=== PATIENT | male | born 1985 | race Caucasian/White ===

== ENCOUNTER 2016-12-24 17:34 | Inpatient (IN) | payer OTHER ==
[~2016-12-24] VITALS: Ht 180.3 cm; Wt 86.2 kg
[2016-12-24 23:20] VITALS: BP 120/62
--- NOTE | 2016-12-24 23:20 | NUR ---
Pre-Assessment Patient is a 31 year old male, presenting to [facility] for his use for Heroin, Xanax, and ETOH Dependence. Patient is alert and oriented x3. Breathing even and non labored. patient notably intoxicated as evidence by delayed slurred speech. Per intake department patient is noted with emesis x2. Patient Reports usage as: Heroin since the age of 23, 2GM IV, Daily with last use at 2200 Xanax, since the age of 18, 2mg PO Daily, with last use at 2200 Methamphetamines, within this last year, 0.5GM IV, last dose 2200 Whiskey/Beer, since the age of 8, 5-6 beers of 7 Shots, last Drink 2200 Vital signs rendered and noted as 120/62, 98%, 83, 16, 98.6, 0/10. Left hand Swollen due an IV injection and multiple possible abscesses to bilateral forearms. Patient noted with an episode of emesis and patient reports "I think I just used to much tonight thinking this would be the last time I used." Patient verbalizes No known allergies, wishes to be full code, and follows a regular Diet. Will continue admission assessment on unit.
[2016-12-25] MEDS ORDERED: ONDANSETRON 4 MG/2 ML VIAL IV PRN (01:00)
--- NOTE | 2016-12-25 01:05 | NUR ---
MD Communication/PRN Medication Administration Patient noted with episodes of emesis upon admission. Relayed to MD with PRN Zofran IM. Medication administered. Will continue to monitor.
[2016-12-25] MEDS ORDERED: ONDANSETRON 4 MG/2 ML VIAL ONE (01:06)
[2016-12-25 01:30] VITALS: BP 114/60
[2016-12-25] MEDS ORDERED: BUPRENORPHINE HCL 2 MG TAB.SUBL SL PRN (01:30)
[2016-12-25] MEDS ORDERED: MAGNESIUM HYDROXIDE 30 ML LIQUID UDC PO PRN (01:30)
[2016-12-25] MEDS ORDERED: LOPERAMIDE HCL 2 MG CAPSULE PO PRN ×2 (01:30)
[2016-12-25] MEDS ORDERED: ACETAMINOPHEN 325 MG TABLET PO PRN (01:30)
[2016-12-25] MEDS ORDERED: HYDROXYZINE PAMOATE 25 MG CAPSULE PO PRN ×2 (01:30→17:00)
[2016-12-25] MEDS ORDERED: MIRALAX 17 GM POWD.PACK PO PRN (01:30)
[2016-12-25] MEDS ORDERED: IBUPROFEN 400 MG TABLET PO PRN (01:30)
[2016-12-25] MEDS ORDERED: ONDANSETRON ODT 4 MG TAB.RAPDIS SL PRN (01:30)
[2016-12-25] MEDS ORDERED: DICYCLOMINE HCL 20 MG TABLET PO PRN (01:30)
[2016-12-25] MEDS ORDERED: LORAZEPAM 1 MG TABLET PO PRN ×2 (01:30)
[2016-12-25] MEDS ORDERED: CLONIDINE HCL 0.1 MG TABLET PO PRN (01:30)
[2016-12-25] MEDS ORDERED: LORAZEPAM 2 MG/1 ML VIAL IM PRN (01:30)
[2016-12-25] MEDS ORDERED: THIAMINE HCL 200 MG/2 ML VIAL IM ONE (01:30)
[2016-12-25] MEDS ORDERED: PROMETHAZINE HCL 25 MG/1 ML VIAL IM PRN (01:30)
[2016-12-25] MEDS ORDERED: MAG HYDROX/AL HYDROX/SIMETH 30 ML LIQUID UDC PO PRN (01:30)
--- NOTE | 2016-12-25 01:30 | NUR ---
Admission Patient is a 31-year-old male, arriving from [facility], to receive treatment for his reported Opiate, Benzo, and ETOH Dependence, admitted under the care of Dr. Bhargav New. Patient was escorted on to unit to his room by male PULPING MACHINE OPERATOR, where body check was rendered. Skin check was rendered by primary nurse and skin noted intact, but patient was noted with abcesses to bilateral forearm. Patient was able to provide Admission Urine Drug Screen upon arrival on the unit. He is alert, oriented, ambulatory with no assistance needed. Breathing even and non labored. Patient is polite, calm and cooperative with admission process. Vital Signs rendered and noted as 114/60, 76, 18, 100%, 98.6, 0/10. Patients height noted as 5'11 and weight noted as 190lbs. Patient verbalized No known allergies, following a Regular diet, wishes to be full code. He denies suicidal ideation. Patient verbalizes history of a seizure due to benzo withdrawal in 2014. Patient reports he was taken to urgent care but cannot recall receiving care. Bowel sounds active in all quadrants with LBM verbalized 12/21/16. Patient reports past medical history of seizures (2014), Hep C= (2014), Anxiety (2010), and Depression (2010). Patient was noted with home medications in luggage as Aspirin 325mg, Eye Drops, and a container with large green tabs. Patient verbalizes chief complaint as ""Im here to detox." Patient explains his use as: 1. Since the age of 23, Heroin 1GM IV, Daily with last use at 12/24/16 at 2200 using 1GM IV 2. Since the age of 18, Xanax, 4mg PO Daily, with last use at 12/24/16 at 2200 using 5MG 3. Methamphetamines, for the past year, 0.5GM IV, last dose 12/24/16 at 2200 0.5MG 4. Whiskey/Beer, since the age of 8,but because a daily use at the age of 14, 5-6 beers of 7 Shots, last Drink 12/24/16 at 2200 Patient reports his signs and symptoms of withdrawal as "Body aches, nausea, vomiting, anxiety, chills, sweats, tremors." Patient is currently living in [place] with a friend but is unemployed. Patient reports of admission to 15 treatment facilities with the last two noted as [facility] for 7 days In [facility]- October 2016 and [facility] for 7 days in [place]. Patient reports of attempting to detox himself at home with 2 weeks of sobriety from November 18 2016 to December 01. Admission COWS noted as 2 and CIWA noted as 6. All information relayed over to Dr. New and patient was placed on PRN Medications for increased signs and symptoms of withdrawal. Labs to be drawn. All needs attended to promptly. Will continue plan of care as ordered.
--- NOTE | 2016-12-25 02:10 | NUR ---
PRN Medication Reassessment Patient able to verbalize "since the medication I dont feel nausea." Patient noted to eat ice cream with no nausea verbalized. PRN Zofran noted to be effective. Will continue to monitor.
[2016-12-25 02:15] LABS: ETHANOL < 3 MG/DL (0-0)
[2016-12-25 02:19] LABS: *AMPHETAMINE, URINE POSITIVE (NEGATIVE); *BARBITURATE, URINE NEGATIVE (NEGATIVE); *CANNABINOID, URINE POSITIVE (NEGATIVE); *COCCAINE, URINE NEGATIVE (NEGATIVE); *OPIATE, URINE POSITIVE (NEGATIVE); *PHENCYCLIDINE SCREEN,URINE NEGATIVE (NEGATIVE)
[2016-12-25 02:39] LABS: HIV-1 p24 ANTIGEN NON REACTIVE (NONREACTIVE); HIV-1/2 ANTIBODY NON REACTIVE (NONREACTIVE)
[2016-12-25 02:50] LABS: ALANINE AMINOTRANSFERASE 57 U/L (16-63); ALKALINE PHOSPHATASE 71 U/L (50-136); AMYLASE 39 U/L (25-115); ASPARTATE AMINOTRANSFERASE 31 U/L (15-37); BILIRUBIN,TOTAL 0.4 mg/dL (0.2-1.0); CALCIUM 9.2 mg/dL (8.5-10.1); CHLORIDE 104 mmol/L (98-107); GFR 88 mL/min (>60); GLUCOSE 90 mg/dL (74-106); LIPASE 100 U/L (73-393); MAGNESIUM 2.2 mg/dL (1.8-2.4); POTASSIUM 4.3 mmol/L (3.5-5.1); SODIUM SERUM 144 mmol/L (136-145); TOTAL PROTEIN, SERUM 7.6 g/dL (6.4-8.2); UREA NITROGEN, BLOOD 17 mg/dL (7-18)
[2016-12-25 03:00] LABS: THYROID STIMULATING HORMONE 2.502 mIU/mL (0.358-3.740)
[2016-12-25 03:08] LABS: CARBON DIOXIDE 33 mmol/L (21-32)
[2016-12-25 04:17] LABS: BASOPHILS % (AUTO) 0.4 % (0.0-2.0); EOSINOPHILS # (AUTO) 0.7 K/uL (0.0-0.7); EOSINOPHILS % (AUTO) 6.5 % (0.0-7.0); HEMATOCRIT 38.2 % (40-50); HEMOGLOBIN 13.3 G/DL (14.0-18.0); LYMPHOCYTES # (AUTO) 3.7 K/uL (20.0-40.0); LYMPHOCYTES % (AUTO) 33.7 % (20.5-51.5); MEAN CORPUSCULAR HEMOGLOBIN 30.7 UUG (27.0-31.0); MEAN CORPUSCULAR HGB CONC 35 g/dL (32.0-37.0); MEAN CORPUSCULAR VOLUME 88.3 FL (82.0-92.0); MONOCYTES # (AUTO) 0.8 K/uL (2.0-10.0); MONOCYTES % (AUTO) 7.1 % (0.0-11.0); NEUTROPHILS # (AUTO) 5.8 K/uL (1.8-8.9); NEUTROPHILS % (AUTO) 52.3 % (38.5-71.5); PLATELET COUNT (AUTO) 322 K/UL (150-450); RED BLOOD CELL COUNT(AUTO) 4.33 MIL/UL (4.7-6.1)
[2016-12-25 04:45] VITALS: BP 96/69
--- NOTE | 2016-12-25 07:07 | NUR ---
End of Shift Patient is in bed sleeping. Breathing even and non labored. No signs of pain or discomfort noted. Patient is a 31 year old male admitted 0123 12/25/16 for Opiate, Benzo, and ETOH Dependence, under the care of Dr. New. Patient placed on PRN medications with MD to reassess. Patient verbalizes no known allergies, full code, regular diet, fall and seizure precautions. Skin noted with abscess to bilateral forearms. Past medical history noted as Anxiety, Depression, Hep C+, and history of Seizures. Admission COWS noted as 2 and CIWA noted as 6. PRN Zofran given for episodes of emesis with medication noted to be effective. All needs attended to promptly. will endorse to continue plan of care as ordered.
[2016-12-25] MEDS ORDERED: ONDANSETRON 4 MG/2 ML VIAL IM PRN (07:15)
--- NOTE | 2016-12-25 07:30 | NUR ---
Start of shift note; Received report from night nurse. Patient is a 31 year old male admitted 12/24/16 for Opiate/benzo/meth and ETOH dependence. Patient to be evaluated by MD today during rounds. Patient is currently resting with eyes closed, respiration even and unlabored. Patient reported history of anxiety, depression, seizure history d/t Benzo withdrawals last episode was in 2014. NKA, full code status, regular diet. Patient is on fall and seizure precaution. Bed in lowest position, call light within reach. Will continue to monitor patient.
[2016-12-25 08:00] VITALS: BP 125/87
[2016-12-25] MEDS ORDERED: TUBERCULIN,PURIF.PROT.DERIV. 5 TU/0.1 ML TEST ID ONE (09:00)
[2016-12-25] MEDS: MULTIVITAMINS,THERAPEUTIC TABLET PO SCH (09:32)
[2016-12-25] MEDS: THIAMINE HCL 100 MG TABLET PO SCH (09:32)
[2016-12-25] MEDS: FOLIC ACID 1 MG TABLET PO SCH (09:32)
[2016-12-25] MEDS ORDERED: ASPI-612 PO (09:51)
[2016-12-25] MEDS ORDERED: NAPH15DR EACHEYE (09:52)
[2016-12-25 12:00] VITALS: BP 104/66
[2016-12-25 16:00] VITALS: BP 112/61
[2016-12-25] MEDS ORDERED: IBUPROFEN 600 MG TABLET PO PRN (17:00)
--- NOTE | 2016-12-25 18:48 | NUR ---
End of shift note; Patient is AOX4. Patient is a 31 year old male admitted 12/24/16 for Opiate/benzo/meth and ETOH dependence. Patient was evaluated by MD and was placed on 5 day Ativan and 5 day Subutex tapers to start tomorrow. Patient reported history of anxiety, depression, seizure history d/t Benzo withdrawals last episode was in 2014. NKA, full code status, regular diet. Patient is on fall and seizure precautions. Educated patient regarding treatment plan and medication regime, verbalized understanding. All safety measures secured. Met all needs.
--- NOTE | 2016-12-25 19:14 | NUR ---
Start of shift note Received report from day shift nurse. Pt is a 31 yo male, A+Ox4, presenting to [facility] for ETOH/Benzo/Opiate dependence. Pt has NKA, is Full code status, and on Regular diet. Pt has HX of Hep C+, Anxiety, depression, and Seizure. Pt is on Fall and Seizure precautions. Pt is to start 5 day Ativan and Subutex tapers tomorrow. No s/s of distress noted at this time. Respirations even and unlabored. Will continue to monitor.
[2016-12-25 20:16] VITALS: BP 117/75
[2016-12-25] MEDS ORDERED: LORAZEPAM 1 MG TABLET PO SCH (21:00)
--- NOTE | 2016-12-25 21:15 | NUR ---
PRN Subutex PT c/o withdrawal s/s and COWS=12 and requested for PRN Subutex. Medication given and tolerated well. Will reassess within 30 mins. Will continue to monitor.
--- NOTE | 2016-12-25 21:45 | NUR ---
PRN Subutex Reassessment Medication effective. Pt shows reduction in withdrawal symptoms. No s/s of ASE/distress noted at this time. Respirations even and unlabored. Will continue to monitor.
[2016-12-26 00:12] VITALS: BP 124/74
[2016-12-26 04:17] VITALS: BP 93/50
--- NOTE | 2016-12-26 07:06 | NUR ---
End of shift note Pt is a 31 yo male, A+Ox4, presenting to [facility] for ETOH/Benzo/Opiate dependence. Pt has NKA, is Full code status, and on Regular diet. Pt has HX of Hep C+, Anxiety, depression, and Seizure. Pt is on Fall and Seizure precautions. Pt is to start 5 day Ativan and Subutex tapers today. Pt was given PRN Subutex @2114. Pt slept for a total of 8 HRS. Last COWS: 2 and Last CIWA: 2 @0400. No s/s of distress noted at this time. Respirations even and unlabored. Will endorse to day shift nurse.
--- NOTE | 2016-12-26 07:44 | NUR ---
Start of shift note; Received report from night nurse. Patient is a 31 year old male admitted 12/24/16 for Opiate/benzo/meth and ETOH dependence. Patient to start on 5 day Ativan and 5 day Subutex today. Patient is currently resting with eyes closed, respiration even and unlabored. Patient reported history of anxiety, depression, seizure history d/t Benzo withdrawals last episode was in 2014. NKA, full code status, regular diet. Patient is on fall and seizure precaution. Bed in lowest position, call light within reach. Will continue to monitor patient.
[2016-12-26 08:00] VITALS: BP 106/60
[2016-12-26] MEDS: MULTIVITAMINS,THERAPEUTIC TABLET PO SCH (09:03)
[2016-12-26] MEDS: BUPRENORPHINE HCL 2 MG TAB.SUBL SL SCH ×4 (09:03→21:21)
[2016-12-26] MEDS: THIAMINE HCL 100 MG TABLET PO SCH (09:04)
[2016-12-26] MEDS: FOLIC ACID 1 MG TABLET PO SCH (09:04)
[2016-12-26] MEDS: LORAZEPAM 1 MG TABLET PO SCH ×4 (09:04→21:18)
[2016-12-26 12:00] VITALS: BP 108/68
--- NOTE | 2016-12-26 14:56 | NUR ---
MD consult; Patient was seen and evaluated by MD Dr. Flores. MD ordered warm compress to Bilateral upper extremities QID for 20 minutes. Order implemented. Will continue to monitor patient.
[2016-12-26] MEDS: GABAPENTIN 400 MG CAPSULE PO SCH ×2 (15:31→21:18)
[2016-12-26 16:00] VITALS: BP 118/68
[2016-12-26 16:08] LABS: HCV AB >11.0 s/co ratio (0.0-0.9); HEPATITIS B CORE AB, IgM Negative (Negative); HEPATITIS B SURFACE AG Negative (Negative)
--- NOTE | 2016-12-26 18:29 | NUR ---
End of shift note; Patient is AOX4. Patient is a 31 year old male admitted 12/24/16 for Opiate/benzo/meth and ETOH dependence. Patient was evaluated by MD and was placed on 5 day Ativan and 5 day Subutex today, no adverse reactions noted. Patient reported history of anxiety, depression, seizure history d/t Benzo withdrawals last episode was in 2014. NKA, full code status, regular diet. Patient is on fall and seizure precautions. Educated patient regarding treatment plan and medication regime, verbalized understanding. Medications were effective in reducing withdrawal symptoms. All safety measures secured. Met all needs.
--- NOTE | 2016-12-26 19:30 | NUR ---
START OF SHIFT NOTE : Patient is AOX4. Patient is a 31 year old male admitted 12/24/16 for Opiate/benzo/meth and ETOH dependence. Patient was evaluated by MD and was placed on 5 day Ativan and 5 day Subutex on 12/26/2016, no adverse reactions noted. Patient reported history of anxiety, depression, seizure history d/t Benzo withdrawals last episode was in 2014. NKA, full code status, regular diet. Patient is on fall and seizure precautions. Medications were effective in reducing withdrawal symptoms. Pt remains compliant with the treatment plan. V/S remain WNL. RR=16, even and unlabored, lungs clear upon auscultation, abdomen soft and non- distended. Pt denies nausea, vomiting and diarrhea. Safety measures in place : bed on lowest position with side rails x2 up for safety, call light within reach. Will continue to monitor closely and offer help.
[2016-12-26 20:00] VITALS: BP 111/61
[2016-12-27] VITALS: BP 113/64
--- NOTE | 2016-12-27 06:48 | NUR ---
END OF SHIFT NOTE : Patient is AOX4. Patient is a 31 year old male admitted 12/24/16 for Opiate/benzo/meth and ETOH dependence. Patient was evaluated by MD and was placed on 5 day Ativan and 5 day Subutex on 12/26/2016, no adverse reactions noted. Patient reported history of anxiety, depression, seizure history d/t Benzo withdrawals last episode was in 2014. NKA, full code status, regular diet. Patient is on fall and seizure precautions. Medications were effective in reducing withdrawal symptoms. Pt remains compliant with the treatment plan. No PRNs were given during my shift. V/S remain WNL. RR=16, even and unlabored, lungs clear upon auscultation, abdomen soft and non- distended. Pt denies nausea, vomiting and diarrhea. LAST CIWA=3 ,COWS=3 at 0400 , [id number] ml, voided x 3, slept 9 hours. Safety measures in place : bed on lowest position with side rails x2 up for safety, call light within reach. Will continue to monitor closely and offer help.
--- NOTE | 2016-12-27 07:38 | NUR ---
Start of shift note; Received report from night nurse. Patient is AOX4. Patient is a 31 year old male admitted 12/24/16 for Opiate/benzo/meth and ETOH dependence. Patient was started on 5 day Ativan and 5 day Subutex yesterday, no adverse reactions noted . Patient reported history of anxiety, depression, seizure history d/t Benzo withdrawals last episode was in 2014. NKA, full code status, regular diet. Patient is on fall and seizure precaution. Bed in lowest position, call light within reach. Patient had an uneventful night. Will continue to monitor patient.
[2016-12-27 08:00] VITALS: BP 116/70
[2016-12-27 08:36] LABS: FOLIC ACID 17.4 NG/ML (8.6-58.9)
[2016-12-27 08:39] LABS: CALCIUM 9.1 mg/dL (8.5-10.1); MAGNESIUM 2.2 mg/dL (1.8-2.4); POTASSIUM 3.8 mmol/L (3.5-5.1)
[2016-12-27] MEDS: FOLIC ACID 1 MG TABLET PO SCH (09:00)
[2016-12-27] MEDS: THIAMINE HCL 100 MG TABLET PO SCH (09:05)
[2016-12-27] MEDS: BUPRENORPHINE HCL 2 MG TAB.SUBL SL SCH ×3 (09:05→21:20)
[2016-12-27] MEDS: MULTIVITAMINS,THERAPEUTIC TABLET PO SCH (09:05)
[2016-12-27] MEDS: GABAPENTIN 400 MG CAPSULE PO SCH (09:05)
[2016-12-27] MEDS: LORAZEPAM 1 MG TABLET PO SCH ×3 (09:05→21:20)
[2016-12-27 12:00] VITALS: BP 105/69
[2016-12-27] MEDS: GABAPENTIN 300 MG CAPSULE PO SCH ×2 (14:10→21:20)
[2016-12-27 16:00] VITALS: BP 118/77
[2016-12-27 20:00] VITALS: BP 109/64
--- NOTE | 2016-12-28 02:00 | NUR ---
PRN BENADRYL Pt. complains of sleeplessness . PRN BENADRYL given as ordered . Safety measures in place : bed on lowest position with side rails x2 up for safety, call light within reach. Will continue to monitor closely and offer help.
[2016-12-28] MEDS: diphenhydrAMINE 50 MG CAPSULE PO PRN ×2 (02:33→21:10)
--- NOTE | 2016-12-28 02:55 | NUR ---
REASSESSMENT ADAM Pt. is sleeping, RR=16, unlabored and even . Safety measures in place : bed on lowest position with side rails x2 up for safety, call light within reach. Will continue to monitor closely and offer help.
--- NOTE | 2016-12-28 06:47 | NUR ---
END OF SHIFT NOTE : Patient is AOX4. Patient is a 31 year old male admitted 12/24/16 for Opiate/benzo/meth and ETOH dependence. Patient was evaluated by MD and was placed on 5 day Ativan and 5 day Subutex on 12/26/2016, no adverse reactions noted. Patient reported history of anxiety, depression, seizure history d/t Benzo withdrawals last episode was in 2014. NKA, full code status, regular diet. Patient is on fall and seizure precautions. Medications were effective in reducing withdrawal symptoms. Pt remains compliant with the treatment plan. V/S remain WNL. RR=16, even and unlabored, lungs clear upon auscultation, abdomen soft and non- distended. Pt denies nausea, vomiting and diarrhea. Pt remains compliant with the treatment plan. PRN BENADRYL was given during my shift. V/S remain WNL. RR=16, even and unlabored, lungs clear upon auscultation, abdomen soft and non- distended. Pt denies nausea, vomiting and diarrhea. LAST CIWA=3 ,COWS= 3 at 0400 , [id number] ml, voided x 2, slept 6.5 hours. Safety measures in place : bed on lowest position with side rails x2 up for safety, call light within reach. Will continue to monitor closely and offer help.
--- NOTE | 2016-12-28 07:19 | NUR ---
BEGINNING OF SHIFT Patient endorsement report received from rn shift mgr nurse, all pertinent information discussed. patient with admitting Dx: opiate/bzo/etoh dependence Patient admitted on the: 12/24/2016. PMH: hep c+, anxiety, depression, history of seizure in 2014 d/t w/d of bzo. Patient placed on a 5 day Subutex taper and is currently to begin day 3 of taper. As per rn shift mgr patient slept for 6 hours, received PRN: Benadryl as per rn shift mgr medication effective. Patient with last cow score of: 3 and last ciwa score of: 3. Patient received awake, alert and oriented x4, educated patient regarding plan of care for the day and medication regimen with good verbal understanding. safety measures in place. will continue to monitor.
[2016-12-28 08:02] VITALS: BP 121/69
[2016-12-28] MEDS: LORAZEPAM 1 MG TABLET PO SCH ×4 (08:34→21:10)
[2016-12-28] MEDS: THIAMINE HCL 100 MG TABLET PO SCH (08:34)
[2016-12-28] MEDS: MULTIVITAMINS,THERAPEUTIC TABLET PO SCH (08:34)
[2016-12-28] MEDS: GABAPENTIN 300 MG CAPSULE PO SCH ×3 (08:34→21:10)
[2016-12-28] MEDS: FOLIC ACID 1 MG TABLET PO SCH (08:34)
[2016-12-28] MEDS: METHOCARBAMOL 750 MG TABLET PO PRN (08:39)
--- NOTE | 2016-12-28 08:39 | NUR ---
PRN ROBAXIN Patient c/o muscle aches 5/10, provided with non pharmacological interventions with no relief, administered Robaxin as ordered, will monitor effectiveness of medication.
[2016-12-28] MEDS ORDERED: BUPRENORPHINE HCL 2 MG TAB.SUBL SL SCH (09:00)
--- NOTE | 2016-12-28 09:39 | NUR ---
ROBAXIN REASSESSMENT patient reports medication effective, current pain level is 0/10, will continue to monitor closely.
[2016-12-28 10:20] LABS: VIT D, 25-HYDROXY 42.6 ng/mL (30.0-100.0)
[2016-12-28 13:50] VITALS: BP 106/65
[2016-12-28] MEDS: BUPRENORPHINE HCL 2 MG TAB.SUBL SL SCH ×2 (14:40→21:10)
[2016-12-28 16:30] VITALS: BP 110/62
--- NOTE | 2016-12-28 18:49 | NUR ---
END OF SHIFT Patient alert and oriented x4, vital signs were stable during shift. patient was compliant with therapeutic plan of care. Patient with admitting Dx: opiate/bzo/etoh dependence and is currently on day 3 of 5 day Subutex and 5 day Ativan taper as ordered. Medication well tolerated, no ASE noted. 0900 assessment patient presented with: heart rate of 92, c/o chills, mild bone and joint aches, tremors that can be felt but not seen, irritable, anxiety, goosebump, barely sweating and, mild agitation with cow score of: 9 and ciwa score of: 7. 1300 assessment patient presented with: heart rate of: 99, c/o chills, tremors that can be felt but not seen, irritable, anxiety, goosebump, barely sweating, mild agitation with cow score of: 8 and ciwa score of: 7. 1700 assessment patient presented with: Heart of 96, c/o chills, tremors that can be felt but not seen, irritable, anxiety and barely sweating with cow score of: 5 and ciwa score of: 6. Detox medication effective at reducing s/sx of withdrawal. during shift received PRN: Robaxin for muscle aches 5/10 medication effective one hour post administration. Patient encouraged adequate PO fluid intake as tolerated. Encouraged to attend group therapies/sessions to learn new coping skills to prevent relapse, noted attending and participating, denies any SI/HI. Safety measures in place. call light kept with in reach. all needs met and rendered. patient endorsed to chemical operations specialist nurse, all pertinent information discussed.
[2016-12-28 20:00] VITALS: BP 126/70
--- NOTE | 2016-12-28 20:00 | NUR ---
START OF SHIFT Received report from day shift nurse. Pt attended a group meeting and returned to his room after. He is a 31 yo male admitted to [facility] on 12/25 for ETOH, BZD, and Opiate dependence. He is A&O x4 and ambulatory. NKA, full code status, and on a regular diet. Pt has a PMH of Hepatitis C, anxiety, depression, and w/d related seizure. On admission he reported using heroin 1-2 grams per day, Xanax 4mg per day, and 5-6 beers and 2-3 shots per day. He started a 5 day Ativan and 5 day Subutex taper on 12/26. Pt is lying in bed and presents with chills, headache, body aches, and a lot of anxiety and a lot of agitation. Tapers due tonight. Encouraged relaxation. Fall and seizure precautions in place. Bed is down with call light in reach. Addendum: 12/30/16 at 0246 by ABE FITZPATRICK RN Incorrect date of note.
--- NOTE | 2016-12-28 21:38 | NUR ---
REASSESSMENT ADAM Pt. is able to rest quietly, ready to sleep, RR=16, unlabored and even . Safety measures in place : bed on lowest position with side rails x2 up for safety, call light within reach. Will continue to monitor closely and offer help.
--- NOTE | 2016-12-29 06:50 | NUR ---
END OF SHIFT NOTE : Patient is AOX4. Patient is a 31 year old male admitted 12/24/16 for Opiate/benzo/meth and ETOH dependence. Patient was evaluated by MD and was placed on 5 day Ativan and 5 day Subutex on 12/26/2016, no adverse reactions noted. Patient reported history of anxiety, depression, seizure history d/t Benzo withdrawals last episode was in 2014. NKA, full code status, regular diet. Patient is on fall and seizure precautions. Medications were effective in reducing withdrawal symptoms. Pt remains compliant with the treatment plan. V/S remain WNL. RR=16, even and unlabored, lungs clear upon auscultation, abdomen soft and non- distended. Pt denies nausea, vomiting and diarrhea. Pt remains compliant with the treatment plan. PRN BENADRYL was given during my shift. V/S remain WNL. RR=16, even and unlabored, lungs clear upon auscultation, abdomen soft and non- distended. Pt denies nausea, vomiting and diarrhea. LAST CIWA=2 ,COWS= 3 at 0400 , [id number] ml, voided x 3, slept 7 hours. Safety measures in place : bed on lowest position with side rails x2 up for safety, call light within reach. Will continue to monitor closely and offer help.
--- NOTE | 2016-12-29 07:15 | NUR ---
Start Of Shift Report received from retail shift supervisor nurse. Patient is AOX4. Patient is a 31 year old male admitted for Opiate/benzo/meth and ETOH dependence. Pt is full code regular diet on fall and seizure precaution denies any food or drug allergies. Pt continues his 5 day Ativan and 5 day Subutex. Patient reported history of anxiety, depression, seizure history d/t Benzo withdrawals last episode was in 2014. Pt remains compliant with the treatment plan. Pt received PRN Benadryl last night and medication was effective per retail shift supervisor nurse. Last CIWA=2 ,COWS= 3 taken at 0400 Pt slept for a total of 7 hours last night. Safety measures in place bed on lowest position with side rails x2 up for safety, call light within reach. Will continue to monitor and provide care.
[2016-12-29 08:00] VITALS: BP 125/79
--- NOTE | 2016-12-29 08:44 | NUR ---
PRN MEDICATION Pt c/o toothache rating it 5/10 requested something for relief, non-pharmacological techniques interventions provided x3 and were not effective. PRN Tylenol 650mg administered PO, educated pt about s/e of medication and when to contact nurse. all needs met, all safety measures in place, will continue to monitor.
[2016-12-29] MEDS: GABAPENTIN 300 MG CAPSULE PO SCH ×3 (08:45→20:34)
[2016-12-29] MEDS: BUPRENORPHINE HCL 2 MG TAB.SUBL SL SCH ×4 (08:45→20:34)
[2016-12-29] MEDS: LORAZEPAM 1 MG TABLET PO SCH ×3 (08:45→20:34)
[2016-12-29] MEDS: FOLIC ACID 1 MG TABLET PO SCH (08:45)
[2016-12-29] MEDS: MULTIVITAMINS,THERAPEUTIC TABLET PO SCH (08:45)
[2016-12-29] MEDS: THIAMINE HCL 100 MG TABLET PO SCH (08:45)
--- NOTE | 2016-12-29 09:00 | NUR ---
Refused medication Pt refused his scheduled Subutex 4mg in the evening. Pt educated about the importance of medication compliance and the consequences of not taking the medications, pt verbalized understanding but still refused the medication. MD contacted and notified. all needs met will continue to monitor.
--- NOTE | 2016-12-29 09:50 | NUR ---
PRN REASSESSMENT Medication effective pt reported a decrease in pain to 2/10, all needs met will continue to monitor
[2016-12-29 12:00] VITALS: BP 133/81
--- NOTE | 2016-12-29 14:49 | NUR ---
Refused medication Pt refused his scheduled Subutex 2mg and Ativan 1 mg in the evening. Pt educated about the importance of medication compliance and the consequences of not taking the medications, pt verbalized understanding but still refused the medication. MD contacted and notified. all needs met will continue to monitor.
[2016-12-29 16:00] VITALS: BP 129/83
--- NOTE | 2016-12-29 19:04 | NUR ---
End Of Shift Endorsed report to shift stacker nurse. Patient is AOX4. Patient is a 31 year old male admitted for Opiate/benzo/meth and ETOH dependence. Pt is full code regular diet on fall and seizure precaution denies any food or drug allergies. Pt continues his 5 day Ativan and 5 day Subutex. Patient reported history d/t Benzo withdrawals last episode was in 2014. Pt remains compliant with the treatment plan. Patient encouraged adequate PO fluid intake as tolerated. Upon assessment patient presented with mild anxiety, and barely sweating with his last COWS score was a 3 and his CIWA was a 3. @1600. Detox medication effective at reducing withdrawal symptoms. Patient encouraged to attend group therapies/sessions to learn new coping skills to recent relapse, patient denies SI/HI. Pt ate all of his meals his total fluid intake was 3755mlwith 5 void and 1 bowel movement Pt received PRN Tylenol for toothache, medication was effective. Pt refused his scheduled Subutex at 0900 and he refused his scheduled Ativan and Subutex at 1500. Safety measures in place. Call light kept within reach. Patient endorsed to shift stacker nurse, all pertinent information discussed.
[2016-12-29 20:00] VITALS: BP 108/72
--- NOTE | 2016-12-29 20:00 | NUR ---
START OF SHIFT Received report from day shift nurse. Pt attended a group meeting and returned to his room after. He is a 31 yo male admitted to [facility] on 12/25 for ETOH, BZD, and Opiate dependence. He is A&O x4 and ambulatory. NKA, full code status, and on a regular diet. Pt has a PMH of Hepatitis C, anxiety, depression, and w/d related seizure. On admission he reported using heroin 1-2 grams per day, Xanax 4mg per day, and 5-6 beers and 2-3 shots per day. He started a 5 day Ativan and 5 day Subutex taper on 12/26. Pt is lying in bed and presents with chills, headache, body aches, and a lot of anxiety and a lot of agitation. Tapers due tonight. Encouraged relaxation. Fall and seizure precautions in place. Bed is down with call light in reach.
--- NOTE | 2016-12-29 20:05 | NUR ---
START OF SHIFT Received report from day shift nurse. Pt attended a group meeting and returned to his room after. He is a 31 yo male admitted to [facility] on 12/25 for ETOH, BZD, and Opiate dependence. He is A&O x4 and ambulatory. NKA, full code status, and on a regular diet. Pt has a PMH of Hepatitis C, anxiety, depression, and w/d related seizure. On admission he reported using heroin 1-2 grams per day, Xanax 4mg per day, and 5-6 beers and 2-3 shots per day. Pt was started on a 5 day Ativan and 5 day Subutex taper on 12/26. He reports generalized body aches, tearing eyes, and anxiety. Tapers due tonight. Fall and seizure precautions in place. Bed is down with call light in reach.
[2016-12-29] MEDS: METHOCARBAMOL 750 MG TABLET PO PRN (20:34)
--- NOTE | 2016-12-29 20:35 | NUR ---
PRN Robaxin and Motrin administration Pt c/o generalized body aches 5/10 and headache. PRN Robaxin and Motrin administered.
--- NOTE | 2016-12-29 21:35 | NUR ---
PRN Robaxin and Motrin reassessment PRN Robaxin and Motrin effective. Pt reports relief of body aches and headache.
[2016-12-29] MEDS: diphenhydrAMINE 50 MG CAPSULE PO PRN (22:37)
--- NOTE | 2016-12-29 22:38 | NUR ---
PRN Benadryl administration Pt c/o inability to sleep. PRN Benadryl administered.
--- NOTE | 2016-12-29 22:45 | NUR ---
PRE-ADMISSION Pt's pre-admission assessment performed in the intake office of [facility]. Pt is accompanied by his . He is A&O x4 and ambulatory with a steady gait. Pt does not appear intoxicated and answers all questions appropriately. He verbalizes that he has been using Subutex, Opioids, Xanax, Cocaine, Marijuana, and occasional ETOH. Pt denies food or drug allergies. Vital signs are B/P 116/78, HR 78, RR 18, O2 sat 94%, T 97.9, pain 0/10. He has a brace on the right knee related to an ongoing knee injury. Pt is able to provide UDS during the intake process. He states that his home medications are: Lisinopril, Prednisone, Sulfasalazine, Terazosin, Diclofenac, Pantoprazole, and Metformin. [facility] Addendum: 12/30/16 at 0603 by ABE FITZPATRICK RN Disregard note. Entered on incorrect client.
--- NOTE | 2016-12-29 23:38 | NUR ---
PRN Benadryl reassessment PRN Benadryl effective. Pt is lying in bed resting comfortably with eyes closed. Respirations even and unlabored. Safety measures in place.
[2016-12-30] VITALS: BP 126/76
--- NOTE | 2016-12-30 00:15 | NUR ---
ADMISSION Pt is a 47 yo male who arrived on the [facility] unit at 2300 on 12/29/16 for medically supervised detox. He is A&O x4 and ambulatory with a steady gait. He reports NKA, is full code status, and on a regular diet. Body check performed by T and skin check performed by nurse. He was oriented to the unit and his room. Vital signs in intake are: B/P 116/81, HR 78, RR 18, O2 sat 94%, T 97.9, pain 0/10. Pt is 6'0" and weight 235lb. He has a PMH of DM Type II, HTN, psoriasis, psoriatic arthritis, enlarged prostate, acid reflux, thalassemia, right knee injury with swelling, bilateral hand swelling, and anxiety. Lung sounds clear, PERRLA, brisk capillary refill, bowel sounds present. He has a small scabs on the right boogie and a bruise on the right calf. No s/s of infection. Pt wears bilateral wrist guards when sleeping to prevent swelling. History of Use 1) Subutex SL 1 mg BID for the past 1 year. Last used 1mg on 12/29/16 at 2100. He has used Subutex "off and on for 10 years". At one time he was using 32mg per day. 2) Xanax 1-2mg on 14 days per month for the past 1 year. Last used 4mg on 12/15/16. He has used Xanax "off and on for 10 years". 3) Oxycodone 60mg PO on 14 days per month for the past 1 years. Last used 30mg on 12/18/16. He has used oxycodone "off and on for 10 years". 4) ETOH anywhere from 1 beer to 4 mixed drinks 2x/month for the past 1 year. Last drank 4 margaritas on 12/22/16. He has used ETOH occasionally for the past 17 years. 5) Cocaine 1-2 grams per day for 14 days out of the month. Last used 17.5 grams over 2 weeks. He has used cocaine "off and on for 17 years". 6) Marijuana 2 hits at night. Last used 2 hits on 12/28/16. He has used marijuana occasionally for 17 years. The patient reports that he alternates between using Oxycodone and Subutex. He uses Xanax as needed to "come down off the uppers" . Symptoms when he doesn't use include "racing thoughts, cold, anxiety, diarrhea, body aches". He decided to come to treatment today because, "I"m getting to be so far gone". The patient explains that he became paranoid and believed his family was trying to hurt him. His longest period of sobriety was 18 months ago for four day. This is his first time in treatment. His primary care physician is Dr. Doug Paula in [facility]. COWS 2 and CIWA 1 on admission. UDS positive for cannabinoids. MD aware of patients admission. Pt educated regarding use of the call light and all questions answered. Fall and seizure precautions in place. Bed is down with call light in reach. Addendum: 12/30/16 at 0458 by ABE FITZPATRICK RN Disregard note. Entered on incorrect client.
--- NOTE | 2016-12-30 04:00 | NUR ---
0400 Vitals refused. 0400 COWS and CIWA deferred. Pt refused to be woken for 0400 Vital signs. Respirations even and unlabored. 0400 COWS and CIWA ordered Q4HWA. Safety measures in place.
--- NOTE | 2016-12-30 07:05 | NUR ---
END OF SHIFT Report provided to day shift nurse. Pt is lying in bed resting. He is a 31 yo male admitted to [facility] on 12/25 for ETOH, BZD, and Opiate dependence. He is A&O x4 and ambulatory. NKA, full code status, and on a regular diet. Pt has a PMH of Hepatitis C, anxiety, depression, and w/d related seizure. On admission he reported using heroin 1-2 grams per day, Xanax 4mg per day, and 5-6 beers and 2-3 shots per day. He started a 5 day Ativan and 5 day Subutex taper on 12/26. Last COWS 2 and CIWA 1. PRN Motrin, Robaxin, and Benadryl administered. He drank 890mL and slept 6 hours. Fall and seizure precautions in place. Bed is down with call light in reach.
--- NOTE | 2016-12-30 07:30 | NUR ---
START OF SHIFT NOTE: Received report from manager mission nurse. Pt is a 31 yo male admitted 12/25/16 for ETOH, BZD, and Opiate dependence. Pt is on a 5 day Subutex and 5 day Ativan taper. Tolerating well. Pt is awake, alert and oriented X4. Color good, skin warm and dry. Respirations even and unlabored. Safety precautions observed. Call light within reach. Will continue to monitor.
[2016-12-30 08:00] VITALS: BP 98/60
[2016-12-30] MEDS: GABAPENTIN 300 MG CAPSULE PO SCH ×3 (09:07→20:55)
[2016-12-30] MEDS: LORAZEPAM 1 MG TABLET PO SCH ×2 (09:07→20:55)
[2016-12-30] MEDS: THIAMINE HCL 100 MG TABLET PO SCH (09:07)
[2016-12-30] MEDS: MULTIVITAMINS,THERAPEUTIC TABLET PO SCH (09:07)
[2016-12-30] MEDS: BUPRENORPHINE HCL 2 MG TAB.SUBL SL SCH ×2 (09:07→20:56)
[2016-12-30] MEDS: FOLIC ACID 1 MG TABLET PO SCH (09:07)
--- NOTE | 2016-12-30 10:00 | NUR ---
VSS COWS 4 CIWA 4 C/O chills and anxiety
[2016-12-30 12:54] VITALS: BP 112/71
[2016-12-30 18:16] VITALS: BP 112/71
--- NOTE | 2016-12-30 18:53 | NUR ---
END OF SHIFT NOTE: Report given to assistant shift supervisor nurse . Pt is a 31 yo male admitted 12/25/16 for ETOH, BZD, and Opiate dependence. Pt is on a 5 day Subutex and 5 day Ativan taper. Tolerating well. Pt is awake, alert and oriented X4. Color good, skin warm and dry. Respirations even and unlabored. Vital signs have remained stable throughout shift. Last COWS 4 CIWA 4 @ 1700 . Safety precautions observed. Call light within reach.
[2016-12-30 20:00] VITALS: BP 94/67
--- NOTE | 2016-12-30 20:35 | NUR ---
PRN Robaxin Pt reports low back pain and generalized body aches 11/27. PRN Robaxin administered.
[2016-12-30] MEDS: METHOCARBAMOL 750 MG TABLET PO PRN (20:55)
[2016-12-30 21:12] LABS: *HCV QUANT 204060 IU/mL (.)
--- NOTE | 2016-12-30 21:35 | NUR ---
PRN Robaxin reassessment PRN Robaxin effective. Pt verbalizes that low back pain and body aches are relieved.
--- NOTE | 2016-12-31 | NUR ---
0000 Vitals refused. 0000 COWS and CIWA deferred. Pt refused to be woken for 0000 Vital signs. Respirations even and unlabored. 0000 COWS and CIWA ordered Q4HWA. Safety measures in place.
--- NOTE | 2016-12-31 04:00 | NUR ---
0400 Vitals refused. 0400 COWS and CIWA deferred. Pt refused to be woken for 0000 Vital signs. Respirations even and unlabored. 0400 COWS and CIWA ordered Q4HWA. Safety measures in place.
--- NOTE | 2016-12-31 07:20 | NUR ---
END OF SHIFT Report provided to day shift nurse. Pt is lying in bed resting. He is a 31 yo male admitted to [facility] on 12/25 for ETOH, BZD, and Opiate dependence. He is A&O x4 and ambulatory. NKA, full code status, and on a regular diet. Pt has a PMH of Hepatitis C, anxiety, depression, and w/d related seizure. On admission he reported using heroin 1-2 grams per day, Xanax 4mg per day, and 5-6 beers and 2-3 shots per day. Pt was started on a 5 day Ativan and 5 day Subutex taper on 12/26. PRN Robaxin administered. Last COWS 6 and CIWA 3. He drank 1251mL and slept for 7 hours. Fall and seizure precautions in place. Bed is down with call light in reach.
--- NOTE | 2016-12-31 07:40 | NUR ---
START OF SHIFT Rcvd endorsement from night nurse, client is in bed, he is A/O x4, he presents with depressed mood, flat affect. Client reports some mild leg cramps. He denies any N/V/D or SI/HI. Encouraged increased fluids as tolerated, to facilitating detox process. Encourage group attendance to improve coping skills. Last COWS 6/CIWA 3. PRN Robaxin for muscle pain, noted effective. He is a 31 y/[facility] male [facility] for ETOH, BZD, and Opiate withdrawal. NKA, full code status, regular diet. She reports hx of w/d related seizure. Seizure precautions in place. Side rails x 2 up/padded. Call light within reach. Will continue plan of care.
[2016-12-31 08:00] VITALS: BP 119/70
[2016-12-31] MEDS ORDERED: BUPRENORPHINE HCL 2 MG TAB.SUBL SL SCH (09:00)
[2016-12-31] MEDS: MULTIVITAMINS,THERAPEUTIC TABLET PO SCH (09:43)
[2016-12-31] MEDS: FOLIC ACID 1 MG TABLET PO SCH (09:43)
[2016-12-31] MEDS: GABAPENTIN 300 MG CAPSULE PO SCH ×3 (09:43→20:35)
[2016-12-31] MEDS: THIAMINE HCL 100 MG TABLET PO SCH (09:43)
[2016-12-31 12:00] VITALS: BP 121/74
[2016-12-31 16:55] VITALS: BP 112/67
--- NOTE | 2016-12-31 19:27 | NUR ---
END OF SHIFT Endorsed to incoming nurse, client is in bed, he is in group therapy, Adequate Po intake and output. He was compliant with group therapy. He is schedule for discharge tomorrow. He had an uneventful day. Last COWS 3/CIWA 3 @ 1600. He is a 31 y/o male admitted to [facility] on 12/25 for ETOH, BZD, and Opiate withdrawal. NKA, full code status, regular diet. She reports hx of w/d related seizure. Seizure precautions in place. Side rails x 2 up/padded. Call light within reach.
[2016-12-31 20:00] VITALS: BP 115/75
--- NOTE | 2016-12-31 20:00 | NUR ---
Start of Shift Pt is a 31 year old male admitted for Opiate/Benzo/ETOH dependence, placed on 5 day Ativan and 5 day Subutex taper, completed. Pt reported using Heroin 1-2gm/daily, Xanax 4mg/daily, Meth 0.5gm and Beer 5-6 beers/daily with 2-3 shots of whiskey. PMH: Hep C, anxiety, depression and hx of seizure in 2014 d/t Benzo withdrawal. NKA, fall/seizure precautions, regular diet and full code. Upon assessment, pt is alert/oriented x4, reports mild anxiety d/t discharge scheduled for tomorrow, skin noted to be flushed, respirations even/unlabored, denies SOB/chest pain, denies n/v/d, bowel sounds active x4, abdomen soft. Safety measures in place, call light within reach, side rails up x2, bed locked and in low position. Will continue to monitor.
[2016-12-31 22:11] LABS: *AMPHETAMINE, URINE NEGATIVE (NEGATIVE); *BARBITURATE, URINE NEGATIVE (NEGATIVE); *CANNABINOID, URINE NEGATIVE (NEGATIVE); *COCCAINE, URINE NEGATIVE (NEGATIVE); *OPIATE, URINE NEGATIVE (NEGATIVE); *PHENCYCLIDINE SCREEN,URINE NEGATIVE (NEGATIVE)
[2016-12-31] MEDS: diphenhydrAMINE 50 MG CAPSULE PO PRN (23:36)
--- NOTE | 2016-12-31 23:36 | NUR ---
PRN Administration Pt reported feeling anxiety and reported inability falling asleep, Non-pharmacological methods ineffective. Vistaril 25mg PRN and Benadryl 50mg PRN administered. Safety measures in place. Will continue to monitor.
[2017-01-01] VITALS: BP 112/64
--- NOTE | 2017-01-01 | NUR ---
Vital Signs BP 112/64, pulse 80, SpO2 98%, respirations 14, temp 98.1, no pain 0/10. COWS/CIWA deferred d/t pt sleeping, to assess while pt is awake as ordered. Safety measures in place. Will continue to monitor.
--- NOTE | 2017-01-01 00:36 | NUR ---
PRN Reassessment Upon reassessment, pt is resting, with eyes closed, no s/s of acute distress noted, respirations even/unlabored. Safety measures in place. Will continue to monitor.
--- NOTE | 2017-01-01 04:00 | NUR ---
Pt refused to be woken up for 0400 VS. COWS/COWS deferred d/t pt sleeping - to assess while pt is awake. Safety measures in place. Will continue to monitor.
--- NOTE | 2017-01-01 07:00 | NUR ---
End of Shift Pt is a 31 year old male admitted for Opiate/Benzo/ETOH dependence, placed on 5 day Ativan and 5 day Subutex taper, completed. Pt reported using Heroin 1-2gm/daily, Xanax 4mg/daily, Meth 0.5gm and Beer 5-6 beers/daily with 2-3 shots of whiskey. PMH: Hep C, anxiety, depression and hx of seizure in 2014 d/t Benzo withdrawal. NKA, fall/seizure precautions, regular diet and full code. During shift, pt presented with mild anxiety d/t discharge in AM, skin was noted with moderate sweat - scheduled medications administered, effective. COWS 2, CIWA 2. Benadryl 50mg PRN and Vistaril 25mg PRN administered for anxiety and sleep, effective. Pt slept for 6 hours, intake of 1347 ml Po and voids x2. Pt is scheduled for discharge today. No s/s of acute withdrawal noted. Safety measures in place, call light within reach, side rails up x2, bed locked and in low position. Endorsed to day shift nurse.
--- NOTE | 2017-01-01 07:30 | NUR ---
START OF SHIFT Patient is a 31/M admitted to [facility] on 12/24/2016 for Opiate, Benzo, Amphetamine, and ETOH withdrawal. History of Hep. C, anxiety, depression, and withdrawal seizures. Benadryl and Vistaril PRN were administered during previous shift and reported to be effective. Skin abscess on arms. Seen by Dr. Flores with no further ordered interventions. Patient is currently in bed resting. Orders for discharge this morning to [facility]. Will continue to monitor
[2017-01-01 08:00] VITALS: BP 110/65
[2017-01-01] MEDS: FOLIC ACID 1 MG TABLET PO SCH (08:31)
[2017-01-01] MEDS: GABAPENTIN 300 MG CAPSULE PO SCH (08:31)
[2017-01-01] MEDS: THIAMINE HCL 100 MG TABLET PO SCH (08:31)
[2017-01-01] MEDS: MULTIVITAMINS,THERAPEUTIC TABLET PO SCH (08:32)
[2017-01-01] MEDS ORDERED: Ibuprofen PO (09:02)
[2017-01-01] MEDS ORDERED: HYDR-3895 PO (09:02)
[2017-01-01] MEDS ORDERED: DIPH50CA37 PO (09:02)
[2017-01-01] MEDS ORDERED: Gabapentin PO (09:02)
[2017-01-01] MEDS ORDERED: METH-33 PO (09:02)
[2017-01-01] MEDS ORDERED: DICY20TA28 PO (09:02)
--- NOTE | 2017-01-01 09:35 | NUR ---
DISCHARGE Patient was discharged and off the unit at 0935. He was discharged to [facility] via private car ([facility]). All belongings wre accounted for and given back to patient. Home medications returned. Vital signs within normal limits. Last COWS 5 and CIWA 4. Escorted off the unit by PRINCIPAL PRODUCT MANAGER
== END 2017-01-01 09:35 | disposition other institution (70) | DRG 895 ==
LOC: SRC 23:13
PROVIDERS: ADMIT Internal Medicine; ATTEND Internal Medicine
DX: F11.23 Opioid dependence with withdrawal (principal); F15.20 Other stimulant dependence, uncomplicated; E87.3 Alkalosis; F10.220 Alcohol dependence with intoxication, uncomplicated; F10.230 Alcohol dependence with withdrawal, uncomplicated; F13.239 Sedative, hypnotic or anxiolytic dependence with withdrawal, unspecified; Y90.9 Presence of alcohol in blood, level not specified; D63.8 Anemia in other chronic diseases classified elsewhere; Z80.9 Family history of malignant neoplasm, unspecified; Z81.4 Family history of other substance abuse and dependence; F41.9 Anxiety disorder, unspecified; F17.210 Nicotine dependence, cigarettes, uncomplicated; R22.33 Localized swelling, mass and lump, upper limb, bilateral; L08.9 Local infection of the skin and subcutaneous tissue, unspecified; F32.9 Major depressive disorder, single episode, unspecified; E86.0 Dehydration; B19.20 Unspecified viral hepatitis C without hepatic coma
CPT/HCPCS: 36415; 70030-TC; 80307; 80324; 80346; 80349; 80361; 82306; 82746; 83550; 83690; 83735; 84443; 85025; 86580; 86592; 86705; 86803; 87340; 87521; 87806; G6040-TC; J2405; Q0163

== ENCOUNTER 2017-05-24 15:33 | Emergency (ER) | payer OTHER ==
[~2017-05-24] VITALS: Ht 180.3 cm; Wt 90.7 kg
[~2017-05-24 15:33] MED LIST: DICY20TA28 PO; DIPH50CA37 PO; Gabapentin PO; HYDR-3895 PO; Ibuprofen PO; METH-33 PO; NAPH15DR EACHEYE
[2017-05-24] MEDS ORDERED: GABA800T2 PO (15:49)
[2017-05-24] MEDS ORDERED: QUET100T PO (15:49)
--- NOTE | 2017-05-24 16:27 | NUR ---
PT WAS EVALUATED BY DR CONROY. PT WAS D/C TO HOME. D/C INSTRUCTIONS GIVEN TO THE PT.
[2017-05-24 16:28] VITALS: BP 139/78
== END 2017-05-24 16:29 | disposition home or self-care (01) ==
LOC: ER 15:34
DX: Z76.0 Encounter for issue of repeat prescription (principal); A60.00 Herpesviral infection of urogenital system, unspecified; Z59.0 Homelessness
CPT/HCPCS: A4663

== ENCOUNTER 2017-06-12 23:08 | Inpatient (IN) | payer OTHER ==
[~2017-06-12] VITALS: Ht 180.3 cm; Wt 86.2 kg
[~2017-06-12 23:08] MED LIST changes: -DICY20TA28 PO; -DIPH50CA37 PO; +GABA800T2 PO; -Gabapentin PO; -HYDR-3895 PO; -Ibuprofen PO; -METH-33 PO; -NAPH15DR EACHEYE; +QUET100T PO
[2017-06-12] MEDS ORDERED: LORAZEPAM 1 MG TABLET PO PRN ×2 (23:15)
[2017-06-12] MEDS ORDERED: THIAMINE HCL 200 MG/2 ML VIAL IM ONE (23:15)
[2017-06-12] MEDS ORDERED: DICYCLOMINE HCL 20 MG TABLET PO PRN (23:15)
[2017-06-12] MEDS ORDERED: LOPERAMIDE HCL 2 MG CAPSULE PO PRN ×2 (23:15)
[2017-06-12] MEDS ORDERED: IBUPROFEN 600 MG TABLET PO PRN (23:15)
[2017-06-12] MEDS ORDERED: ONDANSETRON 4 MG/2 ML VIAL IM PRN (23:15)
[2017-06-12] MEDS ORDERED: diphenhydrAMINE 50 MG CAPSULE PO PRN (23:15)
[2017-06-12] MEDS ORDERED: METHOCARBAMOL 750 MG TABLET PO PRN (23:15)
[2017-06-12] MEDS ORDERED: CLONIDINE HCL 0.1 MG TABLET PO PRN (23:15)
[2017-06-12] MEDS ORDERED: LORAZEPAM 2 MG/1 ML VIAL IM PRN (23:15)
[2017-06-12] MEDS ORDERED: MAG HYDROX/AL HYDROX/SIMETH 30 ML LIQUID UDC PO PRN (23:15)
[2017-06-12] MEDS ORDERED: ONDANSETRON ODT 4 MG TAB.RAPDIS SL PRN (23:15)
[2017-06-12] MEDS ORDERED: BUPRENORPHINE HCL 2 MG TAB.SUBL SL PRN (23:15)
[2017-06-12] MEDS ORDERED: ACETAMINOPHEN 325 MG TABLET PO PRN (23:15)
[2017-06-12] MEDS ORDERED: MIRALAX 17 GM POWD.PACK PO PRN (23:15)
--- NOTE | 2017-06-12 23:35 | NUR ---
PRE ADMISSION NOTE : Patient is a 31 year old male AOX4, presented to [facility] to detoxify from Benzodiazepines, ETOH, Opioid, Crack, Methamphetamine, and Suboxone. Patient appears anxious, nervous, tremors to touch with flushed face. Patient is cooperative, speech is clear and audible. Patient reports NKA. Patient's admitting vital signs are as follows; BP 137/74, HR 95, T: 98.3, RA SPO2 95%. Patient denies any pain at this time. Patient instructed on unit protocol of vitals Q4H and COWS/CIWA assessments. Patient verbalized understanding and agreement. Patient also instructed on policy regarding destruction of any controlled substances/prescriptions brought to facility, and handling of all medications. Patient verbalized understanding and agreement. Will complete admission assessment when patient is brought up to unit.
--- NOTE | 2017-06-12 23:40 | NUR ---
ADMISSION NOTE New patient is a 36 year old male admitted to [facility] on 06/12/2017 @ 23:40 for medically supervised withdrawal from Benzodiazepines, ETOH, Opioid, Crack, Methamphetamine, and Suboxone . Patient reports NKA, is on Full Code, is on Regular Diet, is Fall and Seizures Precautions. Patient denies a history of withdrawal-induced seizures. Past Medical History: Anxiety, Depression, Substances use disorder, Hepatitis C. Patient denies Past Surgical History. Patient reports "No PCP". Pre-assessment completed in intake. Patient provided UDS test and Blood Labs at this time as ordered. Patient is ambulatory with steady gate, stable, A&Ox4, speech is clear. Height: 71 in, Weight: 190 lbs by standing scale. VS upon admission: ; BP 137/74, HR 95, Temperature 98.3, SPO2 95%, pain level "0/10". COWS 10, CIWA 7. The patient presented with anxiety, agitation, nervousness, tremors that can be felt, diaphoresis, restless legs, and fatigue. Patient denies SI/HI. Upon initial assessment respirations unlabored and even. Patient denies SOB and chest pain. Lungs Sounds are clear bilaterally. Bowel Sounds active in all x4 quadrants. Abdomen is soft and non-tender. PERRLA, brisk capillary refill, waiter/waitress buffet equal and strong. Skin is intact, warm and dry to touch. Patient reports the following Substances Use: 1."Xanax PO " 3 tab/6 mg PO every day since 2014". 2."Alcohol PO " Patient reports "consuming Whisky 750 ml every day since 2014". Last used "Whisky 750 ml on 06/12/2017 @0000". 3.Methamphetamine "1 gram PO and via IV every day since 2014". 4.Heroin "2 grams via IV every day since 2014". 5.Suboxone "4 mg PO every day since 2014". 6.Crack "2 grams via IV /snort every day since 2014". Longest sober period was "2 years: 2014 - 2016". Patient reports "Tobacco use since 2006 every day 1 pack". Patient reports he was in Multiple Treatment History. Medications Reconciliation done. Doctor Chidi Mccarthy assessed patient. Patient oriented to his room, Nurse Call Light, and [facility] Floor. Encourage fluids as tolerated. Encourage to attend activities groups. All needs met. Safety measures on place. Call light within reach, bed in lowest position and locked, padded rails up bilaterally rails up bilaterally. Will continue to monitor closely. Addendum: 06/13/17 at 0459 by HIRAM LUCIA RN Patient reports the following Substances Use: 1."Xanax PO " 3 tab/6 mg PO every day since 2014. Last used 3 tab/6 mg PO on 06/12/2017 @0000". 2.."Alcohol PO " Patient reports "consuming Whisky 750 ml every day since 2014". Last used "Whisky 750 ml on 06/12/2017 @0000". 3. Methamphetamine "1 gram PO and via IV every day since 2014. Last used 1 gram via IV on 06/12/2017 @0000". 4. Heroin "2 grams via IV every day since 2014. Last used 2 grams via IV on 06/12/2017 @0000". 5. Suboxone "4 mg PO every day since 2014. Last used 4 mg PO on 06/12/2017 @0000". 6. Crack "2 grams via IV /snort every day since 2014. Last used 2 grams via IV on 06/12/2017 @0000".
[2017-06-12 23:54] LABS: ETHANOL < 3 MG/DL (0-0)
[2017-06-12 23:55] LABS: ALANINE AMINOTRANSFERASE 107 U/L (16-63); ALKALINE PHOSPHATASE 83 U/L (50-136); ASPARTATE AMINOTRANSFERASE 43 U/L (15-37); BILIRUBIN,TOTAL 0.6 mg/dL (0.2-1.0); CARBON DIOXIDE 29 mmol/L (21-32); CHLORIDE 102 mmol/L (98-107); CREATININE 1.1 mg/dL (0.6-1.3); GLUCOSE 111 mg/dL (74-106); MAGNESIUM 2.2 mg/dL (1.8-2.4); POTASSIUM 3.7 mmol/L (3.5-5.1); TOTAL PROTEIN, SERUM 7.9 g/dL (6.4-8.2); UREA NITROGEN, BLOOD 16 mg/dL (7-18)
[2017-06-12 23:56] LABS: *AMPHETAMINE, URINE POSITIVE (NEGATIVE); *BARBITURATE, URINE NEGATIVE (NEGATIVE); *CANNABINOID, URINE NEGATIVE (NEGATIVE); *COCCAINE, URINE POSITIVE (NEGATIVE); *OPIATE, URINE POSITIVE (NEGATIVE); *PHENCYCLIDINE SCREEN,URINE NEGATIVE (NEGATIVE)
[2017-06-13] VITALS (7 sets, daily range): BP systolic 11–137; BP diastolic 54–76
[2017-06-13 00:11] LABS: BASOPHILS # (AUTO) 0.1 K/uL (0.0-8.0); EOSINOPHILS # (AUTO) 0.4 K/uL (0.0-0.7); HEMATOCRIT 41.6 % (40-50); MONOCYTES # (AUTO) 0.8 K/UL (0.1-1.30)
[2017-06-13 00:13] LABS: BASOPHILS % (AUTO) 0.5 % (0.0-2.0); HEMOGLOBIN 14.6 G/DL (14.0-18.0); LYMPHOCYTES # (AUTO) 3.1 K/UL (0.8-4.8); LYMPHOCYTES % (AUTO) 24.2 % (20.5-51.5); MEAN CORPUSCULAR HGB CONC 35 g/dL (32.0-37.0); MEAN CORPUSCULAR VOLUME 88.5 FL (82.0-92.0); MONOCYTES % (AUTO) 6.2 % (0.0-11.0); NEUTROPHILS # (AUTO) 8.6 K/UL (1.8-8.9); NEUTROPHILS % (AUTO) 66.1 % (38.5-71.5); PLATELET COUNT (AUTO) 298 K/UL (150-450)
[2017-06-13] MEDS ORDERED: LORAZEPAM 1 MG TABLET ONE (00:22)
[2017-06-13] MEDS ORDERED: LORAZEPAM 1 MG TABLET PO ONE (00:30)
[2017-06-13] MEDS ORDERED: GABA800T2 PO (00:51)
[2017-06-13] MEDS ORDERED: VALA500T34 PO (00:51)
[2017-06-13] MEDS ORDERED: QUET100T PO (00:51)
[2017-06-13] MEDS ORDERED: OXCA150T PO (00:51)
[2017-06-13] MEDS ORDERED: BUPR1FIL SL (00:51)
--- NOTE | 2017-06-13 07:05 | NUR ---
END OF SHIFT NOTE: Patient is a 36 year old male admitted to [facility] on 06/12/2017 for medically supervised withdrawal from Benzodiazepines, ETOH, Opioid, Crack, Methamphetamine, and Suboxone . Patient reports NKA, is on Full Code, is on Regular Diet, is Fall and Seizures Precautions. Patient denies a history of withdrawal-induced seizures. Past Medical History: Anxiety, Depression, Substances use disorder, Hepatitis C. Patient denies Past Surgical History. Patient reports the following Substances Use: 1."Xanax PO " 3 tab/6 mg PO every day since 2014. Last used 3 tab/6 mg PO on 06/12/2017 @0000". 2.."Alcohol PO " Patient reports "consuming Whisky 750 ml every day since 2014". Last used "Whisky 750 ml on 06/12/2017 @0000". 3. Methamphetamine "1 gram PO and via IV every day since 2014. Last used 1 gram via IV on 06/12/2017 @0000". 4. Heroin "2 grams via IV every day since 2014. Last used 2 grams via IV on 06/12/2017 @0000". 5. Suboxone "4 mg PO every day since 2014. Last used 4 mg PO on 06/12/2017 @0000". 6. Crack "2 grams via IV /snort every day since 2014. Last used 2 grams via IV on 06/12/2017 @0000". Longest sober period was "2 years: 2014 - 2016". Patient reports Multiple Treatment History. MRSA nares collected and sent to Lab. Last COWS 6,CIWA 5 @0400. COWS/CIWA taken when patient was alert during the night. VS @0400: T: 97.9, BP: 106/62, HR:74, RR:17, RA O2Sat: 97%. Pain level: "0/10". Respirations unlabored and even. Patient denies SOB and chest pain. Skin is intact, warm and dry to touch. No Medications administrated d/t patient refused. Patient slept 6 hours, intake 796 ml, voided x1. Encouraged fluids as tolerated. Encouraged to attend group activities. All needs met. Safety measures on place. Call light within reach, bed in lowest position and locked, padded rails up bilaterally. Patient endorsed to day shift nurse.
--- NOTE | 2017-06-13 07:30 | NUR ---
START OF SHIFT Pt 31 y/o male admitted for bzo, etoh, meth, suboxone, and cocaine dependence. Pt received in room on bed with eyes closed resting, but easily arousable to name. Pt alert and oriented to name, place, and time. Perrla. Skin warm and slightly moist to touch. Respirations even and unlabored. It was reported that pt slept for 6 hours last night. Bed on lowest position with side rails x2 up for safety. Call light within reach. No distress noted at this time.
[2017-06-13] MEDS ORDERED: TUBERCULIN,PURIF.PROT.DERIV. 5 TU/0.1 ML TEST ID ONE (09:00)
[2017-06-13] MEDS: GABAPENTIN 300 MG CAPSULE PO SCH ×3 (09:47→20:54)
[2017-06-13] MEDS: MULTIVITAMINS,THERAPEUTIC TABLET PO SCH (09:48)
[2017-06-13] MEDS: FOLIC ACID 1 MG TABLET PO SCH (09:48)
[2017-06-13] MEDS: THIAMINE HCL 100 MG TABLET PO SCH (09:48)
--- NOTE | 2017-06-13 09:48 | NUR ---
PRN Pt appeared anxious and agitated. Pt with bilateral hand tremors noted. Pt with c/o nausea. Pt with cows=12. Subutex po prn per MD order given and tolerated well.
--- NOTE | 2017-06-13 09:48 | NUR ---
PRN Pt with c/o nausea. Zofran odt prn per MD order given and tolerated well.
--- NOTE | 2017-06-13 09:48 | NUR ---
PRN Pt appeared anxious and agitated. Pt with bilateral hand tremors noted. Pt with c/o nausea. ciwa=8. Ativan 1 mg po prn per MD order given and tolerated well.
--- NOTE | 2017-06-13 09:48 | NUR ---
PRN Pt with c/o generalized body aches 01/27. Robaxin po prn per MD order given and tolerated well.
--- NOTE | 2017-06-13 10:48 | NUR ---
PRN EVAL Pt with ciwa=3.
--- NOTE | 2017-06-13 10:48 | NUR ---
PRN EVAL Pt states nausea subsided.
--- NOTE | 2017-06-13 10:48 | NUR ---
PRN EVAL Pt states generalized body aches 2/10 at this time.
--- NOTE | 2017-06-13 10:48 | NUR ---
PRN EVAL Pt with cows=6.
[2017-06-13] MEDS: LORAZEPAM 1 MG TABLET PO SCH ×2 (14:14→20:54)
[2017-06-13] MEDS: BUPRENORPHINE HCL 2 MG TAB.SUBL SL SCH ×2 (14:14→20:55)
[2017-06-13] MEDS: OXCARBAZEPINE 150 MG TABLET PO SCH (17:57)
--- NOTE | 2017-06-13 18:29 | NUR ---
END OF SHIFT Pt 31 y/o male admitted for benzo, eoth, meth, suboxone, and cocaine dependence. Pt alert and oriented to name, place, and time. Perrla. Skin warm and slightly moist to touch. Respirations even and unlabored. Bilateral hand tremors noted. Pt observed mostly isolative to room throughout the day. Pt did not attend group activity this morning. Pt was seen by MD today. Pt was started on a 4 day ativan taper and 4 day subutex taper today. Pt medication compliant and tolerated well. No ASE noted. Bed on lowest position with side rails x2 up for safety. Call light within reach. No distress noted at this time.
--- NOTE | 2017-06-13 20:00 | NUR ---
Start of Shift Pt is a 31 year old male admitted for ETOH/Benzo/Opiate dependence, placed on 5 day Ativan and 5 day Subutex taper. Pt reports use of Xanax 3 tabs of 6mg/daily, Whiskey 750ml/daily, Methamphetamine 1g/daily, Heroin IV 2 g/daily, Suboxone 4mg/daily and crack 2 g/daily. PMH: Anxiety, depression and Hepatitis C. NKA, regular diet, fall/seizure precautions and full code. Upon assessment, pt presents with anxiety, reports feeling hot/cold with chills, body/joint aches, skin is noted with sweat/clammy and flushed, respirations even/unlabored, denies n/v/d, medications due. Safety measures in place, call light within reach, side rails up x2, bed locked and in low position. Will continue to monitor.
[2017-06-13] MEDS: QUETIAPINE FUMARATE 100 MG TABLET PO SCH (20:54)
[2017-06-14] VITALS: BP 118/62
[2017-06-14 04:00] VITALS: BP 127/68
--- NOTE | 2017-06-14 04:00 | NUR ---
Vital Signs/COWS/CIWA Deferred BP 127/68, pulse 92, resp 16, SpO2 98% room air, temp 97.9 CIWA/COWS deferred due to pt sleeping, to assess while pt is wake as ordered Safety measures in place, will continue to monitor.
--- NOTE | 2017-06-14 07:00 | NUR ---
End of Shift Pt is a 31 year old male admitted for ETOH/Benzo/Opiate dependence, placed on 5 day Ativan and 5 day Subutex taper. Pt reports use of Xanax 3 tabs of 6mg/daily, Whiskey 750ml/daily, Methamphetamine 1g/daily, Heroin IV 2 g/daily, Suboxone 4mg/daily and crack 2 g/daily. PMH: Anxiety, depression and Hepatitis C. NKA, regular diet, fall/seizure precautions and full code. During shift, pt presented with anxiety, reports feeling hot/cold with chills, body/joint aches, skin is noted with sweat/clammy and flushed scheduled taper medications administered, COWS 7 and CIWA 6. No PRN medications administered during shift. Pt slept for 7 hours, intake of 855 ml PO, voids x3 and stool x0. Safety measures in place, call light within reach, side rails up x2, bed locked and in low position. Endorsed to day shift nurse.
[2017-06-14 07:07] LABS: HEPATITIS B SURFACE AG Negative (Negative)
--- NOTE | 2017-06-14 07:30 | NUR ---
START OF SHIFT Pt 31 y/o male admitted for bzo, etoh, meth, suboxone, and cocaine dependence. Pt received in room on bed with eyes closed resting, but easily arousable to name. Pt alert and oriented to name, place, and time. Perrla. Skin warm and slightly moist to touch. Bilateral hand tremors noted. Respirations even and unlabored. Pt appears restless in bed. It was reported that pt slept for 7 hours last night. Bed on lowest position with side rails x2 up for safety. Call light within reach. No distress noted at this time.
[2017-06-14 08:00] VITALS: BP 87/48
[2017-06-14] MEDS ORDERED: BUPRENORPHINE HCL 2 MG TAB.SUBL SL SCH (09:00)
[2017-06-14] MEDS: LORAZEPAM 1 MG TABLET PO SCH ×3 (10:13→20:50)
[2017-06-14] MEDS: THIAMINE HCL 100 MG TABLET PO SCH (10:14)
[2017-06-14] MEDS: FOLIC ACID 1 MG TABLET PO SCH (10:14)
[2017-06-14] MEDS: GABAPENTIN 300 MG CAPSULE PO SCH ×3 (10:14→20:50)
[2017-06-14] MEDS: MULTIVITAMINS,THERAPEUTIC TABLET PO SCH (10:14)
[2017-06-14] MEDS: OXCARBAZEPINE 150 MG TABLET PO SCH ×2 (10:14→16:58)
[2017-06-14 12:00] VITALS: BP 119/62
[2017-06-14] MEDS: BUPRENORPHINE HCL 2 MG TAB.SUBL SL SCH ×2 (14:52→20:51)
[2017-06-14 16:00] VITALS: BP 113/63
--- NOTE | 2017-06-14 18:00 | NUR ---
END OF SHIFT Pt 31 y/o male admitted for benzo, eoth, meth, suboxone, and cocaine dependence. Pt alert and oriented to name, place, and time. Perrla. Skin warm and moist to touch. Respirations even and unlabored. Bilateral hand tremors noted. Pt with periods of anxiety this morning. Pt observed mostly in dining room throughout the day. Pt did not attend group activity this morning. Pt was seen by MD today. Pt medication compliant and tolerated well. No ASE noted. Bed on lowest position with side rails x2 up for safety. Call light within reach. No distress noted at this time.
[2017-06-14 20:00] VITALS: BP 130/76
--- NOTE | 2017-06-14 20:00 | NUR ---
Start of Shift Notes Received 31 y/o male admitted 06/12/2017 for bzo, etoh, meth, suboxone, and cocaine dependence. A&Ox4. Px has NKA, on regular diet and on Full Code. During the rounds, px appears anxious, complained of body aches /10. Respirations are even and unlabored. COWS 5, CIWA 6. Bed on lowest position with side rails x2 up for safety. Call light within reach. We'll continue to monitor.
[2017-06-14] MEDS: QUETIAPINE FUMARATE 100 MG TABLET PO SCH (20:50)
[2017-06-15] VITALS: BP 109/75
--- NOTE | 2017-06-15 | NUR ---
COWS and CIWA deferred COWS and CIWA deferred due to the px is sleeping, to assess if the px is awake per doctor's order. Respirations are even and unlabored. We'll continue to monitor.
[2017-06-15 04:00] VITALS: BP 110/74
--- NOTE | 2017-06-15 07:21 | NUR ---
End of Shift Notes 31 y/o male admitted 06/12/2017 for bzo, etoh, meth, suboxone, and cocaine dependence. A&Ox4. Px has NKA, on regular diet and on Full Code. During the shift, px appears anxious, complained of body aches 01/27. Respirations are even and unlabored. Oral intake of 800 ml, voided 2x, no BM. Slept for 6 hrs. Bed on lowest position with side rails x2 up for safety. Call light within reach. We'll continue to monitor.
--- NOTE | 2017-06-15 07:30 | NUR ---
START OF SHIFT Pt 31 y/o male admitted for bzo, etoh, meth, suboxone, and cocaine dependence. Pt received in room on bed with eyes closed resting, but easily arousable to name. Pt alert and oriented to name, place, and time. Perrla. Skin warm and moist to touch. Bilateral hand tremors noted. Respirations even and unlabored. It was reported that pt slept for 6 hours last night. Bed on lowest position with side rails x2 up for safety. Call light within reach. No distress noted at this time.
[2017-06-15 08:05] VITALS: BP 94/67
[2017-06-15] MEDS: LORAZEPAM 1 MG TABLET PO SCH ×3 (08:37→21:51)
[2017-06-15] MEDS: BUPRENORPHINE HCL 2 MG TAB.SUBL SL SCH ×3 (08:37→21:52)
[2017-06-15] MEDS: FOLIC ACID 1 MG TABLET PO SCH (08:37)
[2017-06-15] MEDS: GABAPENTIN 300 MG CAPSULE PO SCH ×3 (08:37→21:51)
[2017-06-15] MEDS: THIAMINE HCL 100 MG TABLET PO SCH (08:37)
[2017-06-15] MEDS: MULTIVITAMINS,THERAPEUTIC TABLET PO SCH (08:37)
[2017-06-15] MEDS: OXCARBAZEPINE 150 MG TABLET PO SCH ×2 (08:37→16:31)
[2017-06-15 12:29] VITALS: BP 127/79
--- NOTE | 2017-06-15 16:51 | NUR ---
Client was prompted to attend daily group sessions at 11ama and 3:30pm Client stated that he would try to attend.
[2017-06-15 17:00] VITALS: BP 149/82
--- NOTE | 2017-06-15 17:30 | NUR ---
PRN Pt with ga=226/84. Catapres po prn per MD order given and tolerated well.
--- NOTE | 2017-06-15 18:30 | NUR ---
PRN EVAL Pt with tj=738/64.
[2017-06-15 20:00] VITALS: BP 115/64
--- NOTE | 2017-06-15 20:00 | NUR ---
Start of Shift Notes Received 31 y/o male admitted 06/12/2017 for bzo, etoh, meth, suboxone, and cocaine dependence. A&Ox4. Px has NKA, on regular diet and on Full Code. During the rounds, px is sleeping. Respirations are even and unlabored. Bed on lowest position with side rails x2 up for safety. Call light within reach. We'll continue to monitor.
[2017-06-15] MEDS: QUETIAPINE FUMARATE 100 MG TABLET PO SCH (21:52)
[2017-06-15] MEDS: CLONIDINE HCL 0.1 MG TABLET PO SCH (21:52)
[2017-06-16] VITALS: BP 104/61
[2017-06-16 04:00] VITALS: BP 100/60
--- NOTE | 2017-06-16 07:17 | NUR ---
End of Shift Notes 31 y/o male admitted 06/12/2017 for bzo, etoh, meth, suboxone, and cocaine dependence. A&Ox4. Px has NKA, on regular diet and on Full Code. During the shift, no complaints made. Oral intake of 1,300 ml, voided 3x, no BM. Slept for 7.5 hrs. Last COWS 4, CIWA 4. Respirations are even and unlabored. Bed on lowest position with side rails x2 up for safety. Call light within reach. We'll continue to monitor.
[2017-06-16 08:00] VITALS: BP 90/60
--- NOTE | 2017-06-16 08:05 | NUR ---
START OF SHIFT: RECEIVED PT A/O X 4. HE PRESENTS WITH IRRITABLE MOOD AND CONGRUENT AFFECT. PT REPORTS MILD BODY ACHES,CHILLS SWEATS AND ANXIETY. COWS 4 CIWA 2 ATIVAN/ SUBUTEX TAPER IN PROGRESS TO MANAGE S/S OF W/D. COWS 4 CIWA 2. HE STATES HE WILL ATTEND GROUPS TODAY. WILL CONTINUE TO MONITOR AND MANAGE S/S OF W/D.
[2017-06-16] MEDS ORDERED: BUPRENORPHINE HCL 2 MG TAB.SUBL SL SCH (09:00)
[2017-06-16] MEDS ORDERED: LORAZEPAM 1 MG TABLET PO SCH (09:00)
[2017-06-16] MEDS: CLONIDINE HCL 0.1 MG TABLET PO SCH ×2 (09:00→20:55)
[2017-06-16] MEDS: THIAMINE HCL 100 MG TABLET PO SCH (09:26)
[2017-06-16] MEDS: FOLIC ACID 1 MG TABLET PO SCH (09:26)
[2017-06-16] MEDS: GABAPENTIN 300 MG CAPSULE PO SCH ×3 (09:26→20:54)
[2017-06-16] MEDS: MULTIVITAMINS,THERAPEUTIC TABLET PO SCH (09:26)
[2017-06-16] MEDS: OXCARBAZEPINE 150 MG TABLET PO SCH ×2 (09:26→16:41)
[2017-06-16 12:00] VITALS: BP 134/84
--- NOTE | 2017-06-16 12:53 | NUR ---
Therapist prompted client to attend group today, client agreed to attend.
[2017-06-16] MEDS ORDERED: METH-406 PO (13:43)
[2017-06-16] MEDS ORDERED: GABA-534 PO (13:43)
[2017-06-16] MEDS ORDERED: ONDA4TAB11 SL (13:43)
[2017-06-16 16:00] VITALS: BP 127/76
--- NOTE | 2017-06-16 18:54 | NUR ---
END OF SHIFT: PT CONTINUES ON ATIVAN /SUBUTEX TAPER. LAST COWS 3 CIWA 2. HE ATTENDED GROUPS AND INTERACTED WITH PEERS. NO PRNS GIVEN. PT STATES THE DETOX MEDS ARE EFFECTIVE. WILL PASS SHIFT REPORT TO ONCOMING NIGHT NURSE.
--- NOTE | 2017-06-16 19:30 | NUR ---
Start of Shift Patient is a 31 year old male admitted to [facility] on 06-12-17 for Benzo, Etoh, and opiate detox. Patient has completed a five day Subutex and Ativan taper. Last CIWA 2 and COWS 3 at 1600. Patient is on fall and seizure precaution. Tolerating diet and fluids. PMH of Hepatitis C, Anxiety and Depression. Mood currently stable. Denies any complaints. Safety measures in place. 2 side rails up, bed locked and in lowest position, call light within reach Report received from AM nurse.
[2017-06-16 20:00] VITALS: BP 111/61
[2017-06-16] MEDS: QUETIAPINE FUMARATE 100 MG TABLET PO SCH (20:54)
--- NOTE | 2017-06-16 21:00 | NUR ---
Medication Held Clonidine 0.1mg PO held at 2100 for < BP below parameters. BP 111/61.
--- NOTE | 2017-06-17 | NUR ---
Vital signs refused. CIWA/COWS deferred. Patient refused vital signs at 0000. CIWA/COWS deferred for sleep.
--- NOTE | 2017-06-17 04:00 | NUR ---
COWS/CIWA deferred. 0400 COWS/CIWA deferred for sleep.
[2017-06-17 04:19] VITALS: BP 114/68
--- NOTE | 2017-06-17 06:47 | NUR ---
End of shift Patient is a 31 year old male admitted to [facility] on 06-12-17 for Benzo, ETOH, and opiate detox. Patient has completed a five day Subutex and Ativan taper. Patient is on fall and seizure precaution. PMH of Hepatitis C, Anxiety and Depression. Denies any SI or HI. Mood has remained stable. Denies any complaints. Vital signs at 2000 BP 111/61, P 82, R 16, SPO2 97% on RA, T 98.1. COWS 1 CIWA 1. VS at 0400 BP 114/68, P 80, R 16, SPO2 98% on RA, T 98.0. Patient slept a total of 8 hours. Intake 1000 ml. Output 3 voids . Safety measures in place. 2 side rails up, bed locked and in lowest position, call light within reach Report given to AM nurse.
--- NOTE | 2017-06-17 07:32 | NUR ---
START OF SHIFT NOTE Received report from night nurse, 31 year old male admitted for BENZO/ETOH/OPIOID dependence. Patient has a PMH Anxiety, Depression,Hep-C. Patient completed his Ativan/Subutex taper tolerated well. Per endorsement patient did not receive any PRN medications and his Clonidine was held due to low blood pressure, Patient slept for 8 hours, Last CIWA was-1/COWS was-1. Patient scheduled for discharge today at 0900. Patient received awake, alert and oriented x4, Educated patient regarding plan of care for the day and medication regimen with good verbal understanding. Safety measures in place. call light with in reach, will continue to monitor.
[2017-06-17 08:00] VITALS: BP 110/62
[2017-06-17 08:11] VITALS: BP 110/62
[2017-06-17] MEDS: FOLIC ACID 1 MG TABLET PO SCH (08:11)
[2017-06-17] MEDS: GABAPENTIN 300 MG CAPSULE PO SCH (08:11)
[2017-06-17] MEDS: OXCARBAZEPINE 150 MG TABLET PO SCH (08:11)
[2017-06-17] MEDS: THIAMINE HCL 100 MG TABLET PO SCH (08:11)
[2017-06-17] MEDS: CLONIDINE HCL 0.1 MG TABLET PO SCH (08:11)
[2017-06-17] MEDS: MULTIVITAMINS,THERAPEUTIC TABLET PO SCH (08:11)
--- NOTE | 2017-06-17 09:33 | NUR ---
DISCHARGE NOTE Patient is in stable condition. Vital signs WNL,Patient is alert oriented x4, Skin intact warm and dry to touch. Patient denies any SI/HI ideations. Patient completed his Subutex and Ativan taper tolerated well. All discharge paper work done signed and dated. Patient educated about discharge instructions, Pt verbalized understanding. Patient 's last COWS score was 1 and CIWA was-1. Patient discharged from [facility] on 06/17/17 at 0933. Patient left the building with all of his belongings and prescriptions. has been contracted and notified of Pt's discharge.
== END 2017-06-17 09:33 | disposition home or self-care (01) | DRG 895 ==
LOC: SRC 23:08
PROVIDERS: ADMIT Internal Medicine; ATTEND Internal Medicine
PROC: HZ2ZZZZ Detoxification Services for Substance Abuse Treatment (ICD-10-PCS; principal; 2017-06-12)
PROC: HZ41ZZZ Group Counseling for Substance Abuse Treatment, Behavioral (ICD-10-PCS; 2017-06-14)
PROC: HZ31ZZZ Individual Counseling for Substance Abuse Treatment, Behavioral (ICD-10-PCS; 2017-06-15)
DX: F13.232 Sedative, hypnotic or anxiolytic dependence with withdrawal with perceptual disturbance (principal); B19.20 Unspecified viral hepatitis C without hepatic coma; F10.232 Alcohol dependence with withdrawal with perceptual disturbance; D63.8 Anemia in other chronic diseases classified elsewhere; F11.23 Opioid dependence with withdrawal; Y90.9 Presence of alcohol in blood, level not specified; F15.23 Other stimulant dependence with withdrawal; F17.210 Nicotine dependence, cigarettes, uncomplicated; F41.9 Anxiety disorder, unspecified; D72.829 Elevated white blood cell count, unspecified; F32.9 Major depressive disorder, single episode, unspecified; Z91.89 Other specified personal risk factors, not elsewhere classified; Z86.69 Personal history of other diseases of the nervous system and sense organs; Z79.899 Other long term (current) drug therapy
CPT/HCPCS: 36415; 70030-TC; 80307; 80324; 80346; 80353; 80361; 83735; 85025; 86580; 86592; 86705; 86803; 87340; 87806; A4663; G0480; J3411; Q0162

== ENCOUNTER 2017-08-22 18:11 | Inpatient (IN) | payer OTHER ==
[~2017-08-22] VITALS: Ht 180.3 cm; Wt 86.2 kg
[~2017-08-22 18:11] MED LIST changes: +GABA-534 PO; -GABA800T2 PO; +METH-406 PO; +ONDA4TAB11 SL; +OXCA150T PO; +VALA500T34 PO
--- NOTE | 2017-08-22 18:30 | NUR ---
PRE-ASSESSMENT: Pre-Assessment done at intake office, client is A/O x4, he presents with flat affect, anxious mood, flat affect, and dilated pupils noted. T 98.2, RR 18, BP 114/62, HR 85, spO2 @ 97% on RA, Pain generalized body aches 5/10. He is ambulatory. He denies any allergies; he denies any withdrawal-induced seizure. He denies a PCP. Client did not bring any home medications, but reports taking the following: Gabapentin 800mg PO TID Cymbalta 60mg PO BID Seroquel 100mg PO HS Clonidine 0.2mg PO BID Vital signs Q4H, UDS, Blood drawn and controlled medications protocol discuss with client, he verbalized understanding.
[2017-08-22] MEDS ORDERED: IBUPROFEN 600 MG TABLET PO PRN (18:45)
[2017-08-22] MEDS ORDERED: MAG HYDROX/AL HYDROX/SIMETH 30 ML LIQUID UDC PO PRN (18:45)
[2017-08-22] MEDS ORDERED: BUPRENORPHINE HCL 2 MG TAB.SUBL SL PRN (18:45)
[2017-08-22] MEDS ORDERED: LOPERAMIDE HCL 2 MG CAPSULE PO PRN ×2 (18:45)
[2017-08-22] MEDS ORDERED: DICYCLOMINE HCL 20 MG TABLET PO PRN (18:45)
[2017-08-22] MEDS ORDERED: MAGNESIUM HYDROXIDE 30 ML LIQUID UDC PO PRN (18:45)
[2017-08-22] MEDS ORDERED: DOCUSATE SODIUM 250 MG CAPSULE PO PRN (18:45)
[2017-08-22] MEDS ORDERED: DIAZEPAM 5 MG TABLET PO PRN (18:45)
[2017-08-22] MEDS ORDERED: LORAZEPAM 2 MG/1 ML VIAL IM PRN (18:45)
[2017-08-22] MEDS ORDERED: diphenhydrAMINE 50 MG CAPSULE PO PRN (18:45)
[2017-08-22] MEDS ORDERED: METHOCARBAMOL 750 MG TABLET PO PRN (18:45)
[2017-08-22] MEDS ORDERED: CLONIDINE HCL 0.1 MG TABLET PO PRN (18:45)
[2017-08-22] MEDS ORDERED: MIRALAX 17 GM POWD.PACK PO PRN (18:45)
[2017-08-22] MEDS ORDERED: DIAZEPAM 10 MG TABLET PO PRN ×2 (18:45)
[2017-08-22] MEDS ORDERED: ACETAMINOPHEN 325 MG TABLET PO PRN (18:45)
--- NOTE | 2017-08-22 18:45 | NUR ---
31 year old male admitted to [facility] for withdrawal from alprazolam & heroin. Client is oriented to unit, educated about protocols and how to work TV and call light in his room. Weight: 190 pounds. Height: 5'11" Dr. Mccarthy assessed client. Urine was collected upon admission. Client Fall/seizure precautions. Call light within reach. Will continue to monitor. Endorsed to incoming nurse.
[2017-08-22] MEDS ORDERED: CLON0.2T PO (19:00)
[2017-08-22] MEDS ORDERED: DULO60CA45 PO (19:00)
[2017-08-22] MEDS ORDERED: GABA800T2 PO ×2 (19:00)
[2017-08-22 19:27] LABS: *AMPHETAMINE, URINE NEGATIVE (NEGATIVE); *BARBITURATE, URINE POSITIVE (NEGATIVE); *CANNABINOID, URINE POSITIVE (NEGATIVE); *COCCAINE, URINE POSITIVE (NEGATIVE); *OPIATE, URINE POSITIVE (NEGATIVE); *PHENCYCLIDINE SCREEN,URINE NEGATIVE (NEGATIVE)
[2017-08-22 20:00] VITALS: BP 98/65
--- NOTE | 2017-08-22 20:00 | NUR ---
ADMISSION NOTE CIWA:5, COWS:8 Pt is a 31 year old male admitted on 09/01/17 for Benzodiazepine, opiate, methamphetamine and cocaine dependency. Pt is full code with NKA. Pt reports PMHx of anxiety, depression, and Hep C (2015). He denies having a PCP. He reports home medications of Gabapentin 800mg TID, Cymbalta 60 mg, Clonidine0.2 mg, and Seroquel 100 mg at bedtime. Medications have been reconciled. Pt reports his last sobriety was 2 weeks ago for one month. He was recently at [facility] from 06/12/17-06/17/17. He describes his current use as: 1. Xanax 8mg daily for 2 weeks. Last dose: 4mg PO on 08/22/17 2. Heroin 2 gram IV daily for 2 weeks. Last dose: " 2 points " on 08/22/17 3. Methamphetamine IV 1gram for one week. Last use: 1 week ago. 4. Cocaine 4 grams IV/smoke daily for 1 weeks. Last dose: 08/22/17 He describes his withdrawal symptoms as:" body aches, chills and sweats" Upon assessment, pt is alert and oriented x4, speech is clear and audible. Pt noted to be anxious. Heart rate regular. Denies chest pain or SOB. PERRLA, breathing is even and unlabored, lung sounds clear. Abdomen is soft and non-distended. Bowel sounds present in all quadrants, last BM 08/22/17. Pt reports that BM is regular. Pt's skin is warm, dry and intact. MD is aware of pt's admission. Pt oriented to room and unit. Safety measures in place. Will continue to monitor.
[2017-08-22] MEDS: GABAPENTIN 400 MG CAPSULE PO SCH (20:18)
[2017-08-22] MEDS ORDERED: BUPRENORPHINE HCL 2 MG TAB.SUBL SL SCH (21:00)
[2017-08-22] MEDS ORDERED: DIAZEPAM 10 MG TABLET PO SCH (21:00)
[2017-08-22 23:03] LABS: BASOPHILS # (AUTO) 0.1 K/uL (0.0-8.0); BASOPHILS % (AUTO) 0.6 % (0.0-2.0); EOSINOPHILS # (AUTO) 0.7 K/uL (0.0-0.7); EOSINOPHILS % (AUTO) 6.4 % (0.0-7.0); HEMATOCRIT 42.2 % (40-50); HEMOGLOBIN 14.4 G/DL (14.0-18.0); LYMPHOCYTES % (AUTO) 27.7 % (20.5-51.5); MEAN CORPUSCULAR HEMOGLOBIN 29.6 UUG (27.0-31.0); MEAN CORPUSCULAR HGB CONC 34 g/dL (32.0-37.0); MEAN CORPUSCULAR VOLUME 86.7 FL (82.0-92.0); MONOCYTES # (AUTO) 0.7 K/UL (0.1-1.30); MONOCYTES % (AUTO) 6.3 % (0.0-11.0); NEUTROPHILS # (AUTO) 6.4 K/UL (1.8-8.9); PLATELET COUNT (AUTO) 304 K/UL (150-450); RED BLOOD CELL COUNT(AUTO) 4.86 MIL/UL (4.7-6.1); WHITE BLOOD COUNT (AUTO) 10.9 K/UL (4.0-11.2)
[2017-08-22 23:09] LABS: ALANINE AMINOTRANSFERASE 74 U/L (16-63); ALKALINE PHOSPHATASE 72 U/L (50-136); ASPARTATE AMINOTRANSFERASE 30 U/L (15-37); BILIRUBIN,TOTAL 0.4 mg/dL (0.2-1.0); CARBON DIOXIDE 29 mmol/L (21-32); CHLORIDE 106 mmol/L (98-107); CREATININE 1.2 mg/dL (0.6-1.3); GLUCOSE 122 mg/dL (74-106); MAGNESIUM 1.9 mg/dL (1.8-2.4); POTASSIUM 3.7 mmol/L (3.5-5.1); TOTAL PROTEIN, SERUM 6.9 g/dL (6.4-8.2); UREA NITROGEN, BLOOD 10 mg/dL (7-18)
[2017-08-22 23:31] LABS: ETHANOL < 3 MG/DL (0-0)
[2017-08-23] VITALS: BP 109/63
--- NOTE | 2017-08-23 04:00 | NUR ---
VITALS REFUSED, COWS/CIWA DEFERRED 0400 vitals refused. COWS and CIWA deferred d/t pt lying in bed with eyes closed noted to be asleep. Breathing is even and unlabored. Safety measures in place. Will monitor.
--- NOTE | 2017-08-23 07:30 | NUR ---
start of shift note: received pt from awake overnight monitor nurse, pt is in stable condition, pt is a new admit from last night. pt will start taper medications as ordered. will monitor for adverse reactions and assist pt with any needs.
[2017-08-23] MEDS ORDERED: TUBERCULIN,PURIF.PROT.DERIV. 5 TU/0.1 ML TEST ID ONE (09:00)
[2017-08-23] MEDS: BUPRENORPHINE HCL 2 MG TAB.SUBL SL SCH ×3 (09:54→21:02)
[2017-08-23] MEDS: GABAPENTIN 400 MG CAPSULE PO SCH ×3 (09:54→21:02)
[2017-08-23] MEDS: DIAZEPAM 10 MG TABLET PO SCH ×3 (09:55→21:02)
[2017-08-23 10:07] VITALS: BP 109/62
[2017-08-23 12:32] VITALS: BP 96/63
[2017-08-23 18:45] VITALS: BP 110/61
--- NOTE | 2017-08-23 19:15 | NUR ---
START OF SHIFT Received 31 year old male patient admitted on 08/22/17 for Xanax, Heroin, Meth and Cocaine dependency. Pt is full code with NKA. He reports a PMHx of anxiety, depression, and Hep C (2014). He reports using Xanax PO 8 mg daily for 2 weeks. Last dose was 4 mg on 08/22/17. Heroin IV 2 grams daily for 2 weeks. Last dose was "2 points" on 08/22/17. Methamphetamine IV 1 gram daily for 1 week. Last dose was 08/15/17. And Cocaine IV/smoke 4 grams daily for 1 week. Last dose was 08/22/17. Pt currently receiving 4 day Valium and 4 day Subutex taper and tolerating well. Per endorsement, he refused TB and did not receive or request PRN medications. Pt is alert and oriented x4, breathing is even and unlabored. Safety measures in place. Will continue to monitor.
--- NOTE | 2017-08-23 19:18 | NUR ---
end of shift note: pt is in stable condition, pt is admitted for opiate/benzo withdrawal, pt tolerated taper well, no A/R noted. pt refused TB skin test. will endorse pt to shift commander nurse.
[2017-08-23 20:00] VITALS: BP 101/61
[2017-08-23] MEDS: QUETIAPINE FUMARATE 100 MG TABLET PO SCH (21:02)
--- NOTE | 2017-08-24 | NUR ---
VITALS REFUSED, COWS/CIWA DEFERRED 0000 vitals refused. COWS and CIWA deferred. Pt lying in bed with eyes closed noted to be asleep. Breathing even and unlabored, respirations 16. Safety measures in place. Will monitor.
--- NOTE | 2017-08-24 04:00 | NUR ---
VITALS REFUSED, COWS/CIWA DEFERRED 0400 vitals refused. COWS and CIWA deferred. Pt lying in bed with eyes closed noted to be asleep. Breathing even and unlabored, respirations 16. Safety measures in place. Will monitor.
--- NOTE | 2017-08-24 07:06 | NUR ---
END OF SHIFT Pt is 31 year old male patient admitted on 08/22/17 for Xanax, Heroin, Meth and Cocaine dependency. Pt is full code with NKA. He continues on a 4 day Valium and 4 day Subutex taper and tolerating well. He did not receive or request PRN medications. He slept a total of 6 hrs, Intake: 1388mL, Void: x2, BM:0, COWS: 6, CIWA:4. Pt remains alert and oriented x4, breathing is even and unlabored. Safety measures in place. Will endorse to AM shift.
--- NOTE | 2017-08-24 07:15 | NUR ---
Start of Shift Endorsement received from nightshift nurse. Pt is a 31 y/o male admitted for Xanax, Heroin and Meth dependence. PT has been placed on a 4 day Valium and 4 day Subutex taper. Pt is tolerating both tapers and moderately withdrawing AEB COWS 6, CIWA 4 at 0400. Pt reports sleeping 6 hours. Pt did not receive any PRN medications. VS WNL. Full Code. PT is alert and oriented x4. Pt is in STABLE condition at this time. Remains compliant with medication and diet regimen. All needs have been met, All safety measures in place per hospital policy. Bed in lowest position, side rails up x2, call-light within reach. Will continue to monitor
[2017-08-24 08:00] VITALS: BP 108/62
[2017-08-24] MEDS: DIAZEPAM 5 MG TABLET PO SCH ×2 (09:22→14:57)
[2017-08-24] MEDS: GABAPENTIN 400 MG CAPSULE PO SCH ×3 (09:22→20:33)
[2017-08-24] MEDS: DULOXETINE 60 MG CAPSULE.DR PO SCH (09:23)
[2017-08-24] MEDS: BUPRENORPHINE HCL 2 MG TAB.SUBL SL SCH ×3 (09:23→20:34)
[2017-08-24 12:00] VITALS: BP_SYST 105; BP_SYST 115; BP_DIAS 64; BP_DIAS 67
[2017-08-24 15:10] LABS: HEPATITIS B SURFACE AG Negative (Negative)
[2017-08-24 16:00] VITALS: BP 110/62
--- NOTE | 2017-08-24 18:56 | NUR ---
End of Shift Endorsement given to nightshift nurse. Pt is a 31 y/o male admitted for Xanax, Heroin and Meth dependence. PT has been placed on a 4 day Valium and 4 day Subutex taper. Pt is tolerating both tapers and moderately withdrawing AEB COWS 4, CIWA 3 at 1600. Pt did not participate in groups and activities despite repeated encouragements. Educated pt on diet and medication regimen. Pt did not receive any PRN medications. VS WNL. Full Code. PT is alert and oriented x4. Pt is in STABLE condition at this time. Remains compliant with medication and diet regimen. All needs have been met, All safety measures in place per hospital policy. Bed in lowest position, side rails up x2, call-light within reach. Will continue to monitor
--- NOTE | 2017-08-24 19:05 | NUR ---
Start of Shift Patient Received. Patient is in his room awake, alert, and verbally responsive. Breathing even and non labored. Patient is a 31 year old male admitted on 08/22/17 for Benzo and Opiate Dependence under the care of Dr. Mccarthy. Patient continues on a 4 day Valium and 4 day Subutex taper. Patient verbalizes no known allergies, wishes to be full code, following a regular diet, placed on fall and seizure precautions, skin noted intact. Past medical history noted as Anxiety, Depression, and Hep C (+). Per endorsement, patient received NO PRN medications. Last noted COWS 5 and CIWA 4. All needs attended to promptly. Will continue plan of care as ordered.
[2017-08-24 20:20] VITALS: BP 123/72
[2017-08-24] MEDS: CLONIDINE HCL 0.1 MG TABLET PO SCH (20:33)
[2017-08-24] MEDS: QUETIAPINE FUMARATE 100 MG TABLET PO SCH (20:33)
[2017-08-24] MEDS ORDERED: DIAZEPAM 10 MG TABLET PO SCH (21:00)
--- NOTE | 2017-08-25 00:15 | NUR ---
Vitals Refused Patient is noted in bed sleeping. Breathing even and non labored. Patient refused vitals to be rendered. All needs attended to promptly. Will continue to monitor. Addendum: 08/25/17 at 0015 by GEOVANI ESPARZA LVN Amended: Links added.
--- NOTE | 2017-08-25 04:00 | NUR ---
Vitals Refused Patient is noted in bed sleeping. Breathing even and non labored. Patient refused vitals to be rendered. All needs attended to promptly. Will continue to monitor. Addendum: 08/25/17 at 0550 by GEOVANI ESPARZA LVN Amended: Links added.
--- NOTE | 2017-08-25 07:08 | NUR ---
Start of Shift Endorsement received from nightshift nurse. Pt is a 31 y/o male admitted for Xanax, Heroin and Meth dependence. PT has been placed on a 4 day Valium and 4 day Subutex taper. Pt is tolerating both tapers and moderately withdrawing AEB COWS 5, CIWA 5 at 0400. Pt reports sleeping 8 hours. Pt did not receive any PRN medications. VS WNL. Full Code. PT is alert and oriented x4. Pt is in STABLE condition at this time. Remains compliant with medication and diet regimen. All needs have been met, All safety measures in place per hospital policy. Bed in lowest position, side rails up x2, call-light within reach. Will continue to monitor
--- NOTE | 2017-08-25 07:08 | NUR ---
End of Shift Patient is in his room sleeping. Breathing even and non labored. Patient is a 31 year old male admitted for Benzo and Opiate Dependence and continues on a 4 day Valium and 4 day Subutex taper. No PRN Medications administered. Last noted COWS 5 and CIWA 5. All needs attended to promptly. Will endorse to continue plan of care as ordered.
[2017-08-25 08:00] VITALS: BP 116/60
[2017-08-25] MEDS: CLONIDINE HCL 0.1 MG TABLET PO SCH (08:41)
[2017-08-25] MEDS: GABAPENTIN 400 MG CAPSULE PO SCH ×3 (08:41→20:41)
[2017-08-25] MEDS: DULOXETINE 60 MG CAPSULE.DR PO SCH (08:41)
[2017-08-25] MEDS: DIAZEPAM 5 MG TABLET PO SCH ×2 (08:41→20:41)
[2017-08-25] MEDS ORDERED: BUPRENORPHINE HCL 2 MG TAB.SUBL SL SCH (09:00)
[2017-08-25 12:00] VITALS: BP 132/68
--- NOTE | 2017-08-25 12:05 | NUR ---
THerapist prompted client to attend group today and stop isolating. Client agreed to come into group
[2017-08-25] MEDS ORDERED: KETOROLAC TROMETHAMINE 30 MG INJ IM PRN (15:30)
[2017-08-25 16:00] VITALS: BP 125/70
--- NOTE | 2017-08-25 18:47 | NUR ---
End of Shift Endorsement given to nightshift nurse. Pt is a 31 y/o male admitted for Xanax, Heroin and Meth dependence. PT has been placed on a 4 day Valium and 4 day Subutex taper. Pt is tolerating both tapers and moderately withdrawing AEB COWS 5, CIWA 5 at 1600. Pt participated in groups and activities. Reinforced education on diet and medication regimen. Pt did not receive any PRN medications. Intake: 2285ml, Void x5, BM x1. VS WNL. Full Code. PT is alert and oriented x4. Pt is in STABLE condition at this time. Remains compliant with medication and diet regimen. All needs have been met, All safety measures in place per hospital policy. Bed in lowest position, side rails up x2, call-light within reach. Will continue to monitor
--- NOTE | 2017-08-25 19:00 | NUR ---
Start of Shift Patient Received. Patient is in his room awake alert and verbally responsive. Breathing even and non labored. Patient is a 31 year old male admitted for Benzo and Opiate Dependence and continues on a 4 day Valium and 4 day Subutex taper. No PRN Medications administered. Last noted COWS 6 and CIWA 5. All needs attended to promptly. Will continue plan of care as ordered.
[2017-08-25 20:38] VITALS: BP 116/78
[2017-08-25] MEDS: CLONIDINE HCL 0.2 MG TABLET PO SCH (20:41)
[2017-08-25] MEDS: BACLOFEN 10 MG TABLET PO SCH (20:41)
[2017-08-25] MEDS: QUETIAPINE FUMARATE 100 MG TABLET PO SCH (20:43)
[2017-08-25] MEDS ORDERED: METH-406 PO (21:07)
[2017-08-25] MEDS ORDERED: DIPH50CA37 PO (21:07)
[2017-08-25] MEDS ORDERED: CLON0.1T14 PO (21:07)
[2017-08-25] MEDS ORDERED: DULO60CA45 PO (21:07)
[2017-08-25] MEDS ORDERED: HYDR25CA PO (21:07)
[2017-08-25] MEDS ORDERED: GABA-536 PO (21:07)
[2017-08-25] MEDS ORDERED: QUET100T PO (21:07)
[2017-08-25] MEDS ORDERED: CLON0.2T12 PO (21:07)
[2017-08-25] MEDS ORDERED: IBUP-1955 PO (21:07)
--- NOTE | 2017-08-26 00:54 | NUR ---
Vitals Refused Patient is noted in bed sleeping. Breathing even and non labored. Patient refused vitals to be rendered. All needs attended to promptly. Will continue to monitor. Addendum: 08/26/17 at 0054 by GEOVANI ESPARZA LVN Amended: Links added.
--- NOTE | 2017-08-26 04:10 | NUR ---
Vitals Refused Patient is noted in bed sleeping. Breathing even and non labored. Patient refused vitals to be rendered. All needs attended to promptly. Will continue to monitor. Addendum: 08/26/17 at 0538 by GEOVANI ESPARZA LVN Amended: Links added.
--- NOTE | 2017-08-26 07:02 | NUR ---
End of Shift Patient is in bed sleeping. Breathing even and non labored. No signs of pain or discomfort noted. Patient is a 31 year old male admitted for Benzo and Opiate Dependence and continues on a 4 day Valium and 4 day Subutex taper. No PRN Medications administered. Last noted COWS 5 and CIWA 4. All needs attended to promptly. Will endorse to continue plan of care as ordered.
--- NOTE | 2017-08-26 07:40 | NUR ---
START OF SHIFT RECEIVED PT LAYING IN BED, A/O X4, RESPIRATIONS EVEN AND UNLABORED. PT REPORTS HAVING CHILLS, COLD AND HOT SWEATS, GENERALIZED BODY ACHES. ENCOURAGED PT TO INCREASE FLUIDS FOR HYDRATION. BED IS IN LOWEST POSITION, SIDE RAILS UP X2. CALL LIGHT WITHIN REACH. ALL SAFETY MEASURES IN PLACE. WILL CONTINUE TO MONITOR AND PROVIDE SUPPORT.
[2017-08-26 08:00] VITALS: BP 105/67
[2017-08-26] MEDS: BACLOFEN 10 MG TABLET PO SCH ×3 (08:35→21:54)
[2017-08-26] MEDS: CLONIDINE HCL 0.1 MG TABLET PO SCH ×2 (08:35→15:15)
--- NOTE | 2017-08-26 08:35 | NUR ---
PRN PT C/O GENERALIZED BODY ACHES 5/10. IBUPROFEN 600 MG PO PRN GIVEN. WILL CONTINUE TO MONITOR.
[2017-08-26] MEDS: GABAPENTIN 400 MG CAPSULE PO SCH ×3 (08:36→21:54)
[2017-08-26] MEDS: DULOXETINE 60 MG CAPSULE.DR PO SCH (08:36)
[2017-08-26] MEDS ORDERED: DIAZEPAM 5 MG TABLET PO SCH (09:00)
[2017-08-26] MEDS ORDERED: BUPRENORPHINE HCL 2 MG TAB.SUBL SL SCH (09:00)
--- NOTE | 2017-08-26 09:35 | NUR ---
REASSESSMENT PT REPORTED IBUPROFEN EFFECTIVE FOR HIS BODY ACHES. ALL SAFETY MEASURES IN PLACE. WILL CONTINUE TO MONITOR.
[2017-08-26 12:00] VITALS: BP 94/50
[2017-08-26 16:00] VITALS: BP 100/52
--- NOTE | 2017-08-26 19:16 | NUR ---
END OF SHIFT PT APPEARS FLUSHED A/O X4, RESPIRATIONS EVEN AND UNLABORED. PT REPORTS HAVING CHILLS, COLD AND HOT SWEATS, GENERALIZED BODY ACHES AND ANXIETY. PT APPEARS AGITATED AND STATES HE IS NOT SURE HE IS READY TO BE DISCHARGED ALTHOUGH PT IS TO BE DISCHARGED TOMORROW. LAST COWS 5 AND CIWA 5 AT 1600. ENCOURAGED PT TO INCREASE FLUIDS FOR HYDRATION. BED IS IN LOWEST POSITION. CALL LIGHT WITHIN REACH. ALL SAFETY MEASURES IN PLACE. WILL GIVE ALL PERTINENT INFORMATION AND ENDORSEMENT TO POLICY WRITER TYPIST NURSE.
--- NOTE | 2017-08-26 19:30 | NUR ---
START OF SHIFT Pt is a 31 y/o male admitted on 08/22/17 for benzo, opiate, meth and cocaine dependence. Pt is full code NKA, regular diet and on fall/seizure precautions. Denies hx of seizures. Pt finished a 4 day Valium and 4 day Subutex taper and is scheduled to be d/c tomorrow. Pt reports PMH of anxiety, depression and hepatitis C. Upon assessment pt presents with anxiety, agitation, cold sweats, chills, body aches 5/10, fatigue, dysphoria and anhedonia. Respirations even and unlabored. Denies N/V/D. Denies A/V hallucinations. Denies chest pain or SOB. Medications due. Safety measures in place. Call light within reach. Will continue to monitor.
[2017-08-26 20:00] VITALS: BP_SYST 98; BP_DIAS 55; BP_DIAS 60
[2017-08-26] MEDS: CLONIDINE HCL 0.2 MG TABLET PO SCH (21:00)
[2017-08-26] MEDS: QUETIAPINE FUMARATE 100 MG TABLET PO SCH (21:54)
--- NOTE | 2017-08-26 21:54 | NUR ---
PRN ROBAXIN ADMINISTRATION Pt reports body aches 12/27. Safety measures in place. Call light within reach. Will continue to monitor.
--- NOTE | 2017-08-26 22:54 | NUR ---
DAVON MCKEON REASSESSMENT Pt reports improvement in body aches to tolerable level. Safety measures in place. Call light within reach. Will continue to monitor.
[2017-08-27] VITALS: BP_SYST 106; BP_DIAS 55; BP_DIAS 60
--- NOTE | 2017-08-27 | NUR ---
COWS/CIWA DEFERRED Pt laying in bed with eyes closed, COWS/CIWA deferred, to be assessed when pt is awake per orders. Respirations 20, even and unlabored. Safety measures in place. Call light within reach. Will continue to monitor.
--- NOTE | 2017-08-27 04:00 | NUR ---
COWS/CIWA DEFERRED AND VITALS REFUSED Pt laying in bed with eyes closed, COWS/CIWA deferred, to be assessed when pt is awake per orders. Respirations 18, even and unlabored. Safety measures in place. Call light within reach. Will continue to monitor.
--- NOTE | 2017-08-27 07:05 | NUR ---
END OF SHIFT Pt is a 31 y/o male admitted on 08/22/17 for benzo, opiate, meth and cocaine dependence. Pt is full code NKA, regular diet and on fall/seizure precautions. Denies hx of seizures. Pt finished a 4 day Valium and 4 day Subutex taper and is scheduled to be d/c today. Pt reports PMH of anxiety, depression and hepatitis C. Pt presented with anxiety, agitation, cold sweats, chills, body aches 5/10, fatigue, dysphoria and anhedonia. Scheduled medications and PRN Robaxin administered, effective in S/S of withdrawal as verbalized by pt. Scheduled 2100 Clonidine held d/t BP 98/60 HR 60. Last COWS 5 CIWA 6. Pt slept 6 hours. Intake 1796 ml, void x 3, stool x 0. Safety measures in place. Call light within reach. Pts needs have been met. Endorsed to day shift nurse.
--- NOTE | 2017-08-27 07:30 | NUR ---
start of shift note: received pt from robotic technician nurse, pt is in stable condition no s/s of pain or discomfort. pt is admitted to [facility] for opiate/benzo withdrawal/dependence. pt's last noted cows 5 and ciwa 6, pt is set for discharge. will assist pt in discharging and will continue to monitor pt for nay changes
[2017-08-27 09:39] VITALS: BP 100/60
[2017-08-27] MEDS: BACLOFEN 10 MG TABLET PO SCH (09:39)
[2017-08-27] MEDS: GABAPENTIN 400 MG CAPSULE PO SCH (09:39)
[2017-08-27] MEDS: DULOXETINE 60 MG CAPSULE.DR PO SCH (09:39)
[2017-08-27] MEDS: CLONIDINE HCL 0.1 MG TABLET PO SCH (09:39)
--- NOTE | 2017-08-27 09:58 | NUR ---
discharge note: pt left the unit in stable condition no s/s of pain or discomfort, pt teaching administered. pt verbalized understanding. Pt's V/S WNL. pt was transferred to treatment via private car
== END 2017-08-27 09:58 | disposition other institution (70) | DRG 895 ==
LOC: SRC 18:14
PROVIDERS: ADMIT Internal Medicine; ATTEND Internal Medicine
PROC: HZ2ZZZZ Detoxification Services for Substance Abuse Treatment (ICD-10-PCS; principal; 2017-08-22)
PROC: HZ31ZZZ Individual Counseling for Substance Abuse Treatment, Behavioral (ICD-10-PCS; 2017-08-23)
DX: F13.230 Sedative, hypnotic or anxiolytic dependence with withdrawal, uncomplicated (principal); F33.2 Major depressive disorder, recurrent severe without psychotic features; I15.9 Secondary hypertension, unspecified; F14.20 Cocaine dependence, uncomplicated; D63.8 Anemia in other chronic diseases classified elsewhere; F17.210 Nicotine dependence, cigarettes, uncomplicated; F11.23 Opioid dependence with withdrawal; F41.9 Anxiety disorder, unspecified; M79.632 Pain in left forearm; R73.9 Hyperglycemia, unspecified; Z91.89 Other specified personal risk factors, not elsewhere classified; F15.10 Other stimulant abuse, uncomplicated; B18.2 Chronic viral hepatitis C
CPT/HCPCS: 36415; 70030-TC; 73090; 80307; 80345; 80346; 80349; 80353; 80361; 83735; 85025; 86592; 86705; 86803; 87340; 87806; A4663; G0480